=== PATIENT | male | born 1945 | race African-American/Black ===

== ENCOUNTER 2016-12-02 02:13 | Inpatient (IN) | payer OTHER ==
[2016-12-02] MEDS ORDERED: morphine CARPU-JECT 2 MG/1 ML DISP.SYRIN IVPUSH ONE ×2 (03:18→03:58)
--- NOTE | 2016-12-02 03:22 | PDOC ---
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 Patient states his abdominal pain starts at the right upper quadrant radiating down to the suprapubic region. He denies nausea, vomiting, or diarrhea. He states over the past 5 days he has had very little to no bowel movements and is still able to pass gas. The patient denies fever, chills, cough, SOB, chest pain, and palpitations. The patient denies dysuria, hematuria, urgency, and frequency. Allergies: NKDA Social History: No alcohol, tobacco, or drug use reported. Past Surgical History: s/p CABG 4x PCP: None reported <Annie Munguia - Last Filed: 12/02/16 04:19> <Eduardo Holm - Last Filed: 12/02/16 05:41> - General Chief Complaint: Constipation Stated Complaint: UPPER ABDOMINAL PAIN Time Seen by Provider: 12/02/16 03:13 Past History <Annie Munguia - Last Filed: 12/02/16 04:19> - Psycho/Social/Smoking Cessation Hx Suicidal Ideation: No Smoking History: Unknown if ever smoked Hx Alcohol Use: No Drug/Substance Use Hx: No <Eduardo Holm - Last Filed: 12/02/16 05:41> - Past Medical History Allergies/Adverse Reactions: Allergies Allergy/AdvReac Type Severity Reaction Status Date / Time No Known Allergies Allergy Verified 12/02/16 02:22 Home Medications: Ambulatory Orders Metoprolol Succinate [Toprol Xl -] 25 mg PO DAILY 12/02/16 Ramipril 5 mg PO DAILY 12/02/16 Review of Systems - Review of Systems Able to Perform ROS?: Yes Comments:: 12/02/16 03:35 +right upper quadrant pain radiating down to suprapubic region, constipation Absent: fever, chills, cough, SOB, chest pain, nausea, vomiting, diarrhea, dysuria, hematuria, urgency, and frequency. <Annie Munguia - Last Filed: 12/02/16 04:19> *Physical Exam - Vital Signs Last Vital Signs Temp Pulse Resp BP Pulse Ox 65 18 160/81 98 12/02/16 02:22 12/02/16 02:22 12/02/16 02:22 12/02/16 02:22 <AshokAnnie cooley - Last Filed: 12/02/16 04:19> - Vital Signs Last Vital Signs Temp Pulse Resp BP Pulse Ox 65 18 160/81 98 12/02/16 02:22 12/02/16 02:22 12/02/16 02:22 12/02/16 02:22 - Physical Exam Comments: 12/02/16 03:20 UNABLE TO LYE DOWN DUE TO PAIN General Appearance: Yes: Nourished, Appropriately Dressed, Apparent Distress HEENT: positive: Normal ENT Inspection Respiratory/Chest: positive: Lungs Clear, Normal Breath Sounds. negative: Chest Tender, Respiratory Distress Cardiovascular: positive: Regular Rhythm, Regular Rate Gastrointestinal/Abdominal: positive: Normal Bowel Sounds, Tender (RUQ, PERIUMBILICAL, AND SUPRAPUBIC AREA), Guarding. negative: Rebound Musculoskeletal: positive: Normal Inspection. negative: CVA Tenderness Extremity: positive: Normal Capillary Refill Integumentary: positive: Normal Color. negative: Jaundice, Rash Neurologic: positive: Fully Oriented, Alert, Normal Mood/Affect, Normal Response , Motor Strength 5/5 <Eduardo Holm - Last Filed: 12/02/16 05:41> ED Treatment Course - LABORATORY CBC & Chemistry Diagram: 12/02/16 03:00 12/02/16 03:00 - RADIOLOGY Radiograph Interpretation: 12/02/16 04:19 EXAM: CT abdomen and pelvis without contrast Reviewed by Imaging extension course counselor: FINDINGS: Lung bases are clear. The visualized cardiac chambers are normal size and configuration. Small to moderate amount of ascites is noted. There is contrast in the gallbladder. No free air or biliary duct dilatation. Normal unenhanced liver, pancreas, spleen, adrenal glands and kidneys. The stomach and abdominal small and large bowel are normal. There is no aortic aneurysm. There is no significant retroperitoneal lymphadenopathy. Small fat-containing umbilical hernia is noted. The pelvic small and large bowel are normal. There is no evidence of appendicitis, although the appendix only partially visualized. The urinary bladder and prostate gland are normal. There is no significant pelvic lymphadenopathy. IMPRESSION: Small to moderate amount of ascites could indicate a biliary leak.. No biliary duct dilation or pancreatic inflammation. Consider further evaluation with HIDA scan as clinically indicated. - Medications Given in the ED: ED Medications Discontinued Medications Generic Name Dose Route Start Last Admin Trade Name Asif PRN Reason Stop Dose Admin Morphine Sulfate 2 mg 12/02/16 03:18 12/02/16 03:25 Morphine Injection - IVPUSH 12/02/16 03:19 2 mg ONCE ONE Administration <Annie Munguia - Last Filed: 12/02/16 04:19> - LABORATORY CBC & Chemistry Diagram: 12/02/16 03:00 12/02/16 04:30 <Eduardo Holm - Last Filed: 12/02/16 05:41> Progress Note - Progress Note Progress Note: SUDDEN ONSET ABD PAIN DIFFICULT EXAM MORPHINE, IVF, CT NON CONTRAST (DIFF: GS/NL/CONSTIPATION) <Eduardo Holm - Last Filed: 12/02/16 05:41> Medical Decision Making - Medical Decision Making 12/02/16 03:54 Nurse approached and informed me that family member, at bedside, notified him that patient had a MRCP done at [facility] yesterday with unclear reasons given. <Annie Munguia - Last Filed: 12/02/16 04:19> *DC/Admit/Observation/Transfer - Attestations Scribe Attestion: 12/02/16 03:35 Documentation prepared by Annie Munguia, acting as medical affairs specialist for Eduardo Holm MD <Annie Munguia - Last Filed: 12/02/16 04:19> - Discharge Dispostion Admit: Yes <Eduardo Holm - Last Filed: 12/02/16 05:41> Diagnosis at time of Disposition: Postoperative bile leak - Discharge Dispostion Condition at time of disposition: Stable
[2016-12-02] MEDS ORDERED: morphine CARPU-JECT 2 MG/1 ML DISP.SYRIN ONE ×2 (03:23→03:54)
[2016-12-02 03:33] LABS: BASOPHIL 0.9 % (0-2.0); EOSINOPHIL 0.1 % (0-4.5); MCHC 34.3 g/dl (32.0-35.9); MEAN CELL VOLUME 99.1 fl (80-96); MEAN PLT VOLUME 8.4 fl (7.5-11.1); NEUTROPHILS 80.2 % (42.8-82.8); PLATELET COUNT 246 K/MM3 (134-434); RDW 14.8 % (11.9-15.9); WHITE BLOOD COUNT 6.5 K/mm3 (4.0-10.0)
[2016-12-02] MEDS ORDERED: SODIUM CHLORIDE 1,000 ML IV SCH ×2 (04:00→07:58)
[2016-12-02] MEDS ORDERED: morphine CARPU-JECT 4 MG/1 ML DISP.SYRIN ONE (04:40)
[2016-12-02] MEDS ORDERED: morphine CARPU-JECT 4 MG/1 ML DISP.SYRIN IVPUSH ONE (04:49)
[2016-12-02] MEDS ORDERED: PIPERACILLIN/TAZOB 3.375 GM/50 ML PRE-DOCKED IV ONE (04:49)
[2016-12-02] MEDS ORDERED: PIPERACILLIN/TAZOB 3.375 GM 50 ML IVPB ONE (04:54)
[2016-12-02 05:08] LABS: ALBUMIN 3.4 g/dl (3.4-5.0); ANION GAP 13 (8-16); BILIRUBIN,TOTAL 1.3 mg/dL (0.2-1.0); CALCIUM 9.4 mg/dL (8.5-10.1); CO2 25 mmol/L (21-32); CREATININE 0.8 mg/dL (0.7-1.3); GLUCOSE,RANDOM 149 mg/dL (74-106); SGOT/AST 149 U/L (15-37); SGPT/ALT 197 U/L (12-78); TOT PROT 6.5 g/dl (6.4-8.2)
[2016-12-02 05:21] LABS: ALK PHOS 968 U/L (45-117)
[2016-12-02 05:55] LABS: URINE APPEARANCE CLEAR; URINE BILIRUBIN NEGATIVE (NEGATIVE); URINE BLOOD NEGATIVE (NEGATIVE); URINE COLOR DKYELLOW; URINE GLUCOSE (UA) NEGATIVE (NEGATIVE); URINE KETONE TRACE (NEGATIVE); URINE LEUK ESTERASE NEGATIVE (NEGATIVE); URINE NITRITE NEGATIVE (NEGATIVE); URINE PROTEIN NEGATIVE (NEGATIVE); URINE UROBILINOGEN 2.0 E.U/dl E.U./dl (0.2-1.0)
--- NOTE | 2016-12-02 05:57 | HP ---
CHIEF COMPLAINT: Severe abdominal pain PCP: No PCP HISTORY OF PRESENT ILLNESS: Patient is a 71 year old male presented to the ED with the chief complaints of severe abdominal pain. A/c to the patient, he had an ERCP (unsure if he had an MRCP) done in [facility] yesterday. After he returned home, he has been having severe abdominal pain, located in the right upper quadrant, umbilical area and supra pubic area, 20/10 in intensity, pressure type, non radiating. Aggravated with deep inspiration and movement. Slight relief on bending forward. No nausea or vomiting. Patient never had the symptom before. Also noticed 15 lbs of weight loss over the past few weeks. Has a h/o constipation. Had a small bowel movement today after 6 days of no bowel movement. Denies chest pain, sob, cough, palpitation, headache, blurring of vision. Bladder habit normal. Appetite decreased. Sleep Normal. ER course was notable for: (1) Afebrile, no leukocytosis, RBS 149; T. Bilirubin 1.3; AST-149; ALT 197; ALP 968 (2) CT abdomen without IV contrast (3) Morphine 8mg; IV Zosyn Recent Travel: None PAST MEDICAL HISTORY: UT s/p CABG 4 (10years ago); Hypertension PAST SURGICAL HISTORY: As mentioned above Social History: Smoking: Quit 10 years ago, smoked for 20 years 1 pack/day Alcohol: Quit 3 years Drugs: Denies Family History: Allergies No Known Allergies Allergy (Verified 12/02/16 02:22) HOME MEDICATIONS: Home Medications Medication Instructions Recorded Metoprolol Succinate [Toprol Xl -] 25 mg PO DAILY 12/02/16 Ramipril 5 mg PO DAILY 12/02/16 REVIEW OF SYSTEMS CONSTITUTIONAL: Absent: fever, chills, diaphoresis, generalized weakness, malaise, loss of appetite, weight change HEENT: Absent: rhinorrhea, nasal congestion, throat pain, throat swelling, difficulty swallowing, mouth swelling, ear pain, eye pain, visual changes CARDIOVASCULAR: Absent: chest pain, syncope, palpitations, irregular heart rate, lightheadedness , peripheral edema RESPIRATORY: Absent: cough, shortness of breath, dyspnea with exertion, orthopnea, wheezing, stridor, hemoptysis GASTROINTESTINAL: Present: severe abdominal pain Absent: abdominal distension, nausea, vomiting, diarrhea, constipation, melena , hematochezia GENITOURINARY: Absent: dysuria, frequency, urgency, hesitancy, hematuria, flank pain, genital pain MUSCULOSKELETAL: Absent: myalgia, arthralgia, joint swelling, back pain, neck pain SKIN: Absent: rash, itching, pallor HEMATOLOGIC/IMMUNOLOGIC: Absent: easy bleeding, easy bruising, lymphadenopathy, frequent infections ENDOCRINE: Absent: unexplained weight gain, unexplained weight loss, heat intolerance, cold intolerance NEUROLOGIC: Absent: headache, focal weakness or paresthesias, dizziness, unsteady gait, seizure, mental status changes, bladder or bowel incontinence PSYCHIATRIC: Absent: anxiety, depression, suicidal or homicidal ideation, hallucinations. PHYSICAL EXAMINATION GENERAL: Elderly male, sitting up, Awake, alert, and fully oriented, in no acute distress. HEAD: Normal with no signs of trauma. EYES:EOM intact, Icteric +, no pallor EARS, NOSE, THROAT: Ears normal. Moist mucous membranes. NECK: Supple LUNGS: Breath sounds equal, clear to auscultation bilaterally. No wheezes, and no crackles. No accessory muscle use. HEART: Regular rate and rhythm, normal S1 and S2 without murmur, rub or gallop. ABDOMEN: Soft, tenderness over the right upper quadrant > umbilical and supra pubic area, not distended, normoactive bowel sounds, no guarding, no rebound, no masses. No hepatomegaly or splenomegaly. MUSCULOSKELETAL: Normal range of motion at all joints. No bony deformities or tenderness. No CVA tenderness. UPPER EXTREMITIES: 2+ pulses, warm, well-perfused. No cyanosis. No clubbing. No peripheral edema. LOWER EXTREMITIES: 2+ pulses, warm, well-perfused. No calf tenderness. No peripheral edema. NEUROLOGICAL: Cranial nerves II-XII intact. Normal speech. Normal gait. PSYCHIATRIC: Cooperative. Good eye contact. Appropriate mood and affect. SKIN: Warm, dry, normal turgor, no rashes or lesions noted, normal capillary refill. EXAM: CT abdomen and pelvis without contrast IMPRESSION: Small to moderate amount of ascites could indicate a biliary leak.. No biliary duct dilation or pancreatic inflammation. Consider further evaluation with HIDA scan as clinically indicated. ASSESSMENT/PLAN: Patient is a 71 year old male with significant past medical history of UT s/p CABG 4 (10years ago); Hypertension presented to the ED with the chief complaints of severe abdominal pain. # Severe abdominal pain- likely due to biliary colic s/p ERCP Patient presented with severe abdominal pain since yesterday after he had an ERCP (unsure if he had MRCP) yesterday at [facility] Unintentional weight loss. Afebrile, elevated liver enzymes CT abdomen showed small to moderate amount of ascites could indicate biliary leak Morphine 8mg; IV Zosyn Admitted in Med-Surg NPO Iv fluids For break through pain-Dilaudid 1mg; Fentanyl patch GI consult placed Possible HIDA scan Please kindly try to get documents from [facility]. # Hypertension Metoprolol 25 mg Daily Ramipril 5mg PO Daily # Constipation Colace # FEN IV fluids Electrolytes to be repeated NPO except for meds # Prophylaxis For DVT- On SCDs, just in case patient goes for any procedure no anticoagulants given For GI- Not indicated # Code Status: Full Code # Dispo: Admitted in Med-Surg. Duration of stay unknown. Illness, Investigation and Plan of care explained to the patient. He verbalized understanding. Case seen and discussed with Dr. Horton. Visit type - Emergency Visit Emergency Visit: Yes ED Registration Date: 12/02/16 Care time: The patient presented to the Emergency Department on the above date and was hospitalized for further evaluation of their emergent condition. - New Patient This patient is new to me today: Yes Date on this admission: 12/02/16 - Critical Care Critical Care patient: No
--- NOTE | 2016-12-02 05:59 | PN ---
Teaching Attending Note Name of Resident: Svitlana Aleman ATTENDING PHYSICIAN STATEMENT I saw and evaluated the patient. I reviewed the resident's note and discussed the case with the resident. I agree with the resident's findings and plan as documented. SUBJECTIVE: Patient is not a good historian and unaware of exact test or presumed diagnosis from his prior hospital visits. Patient brought into ED with c/o Abdominal pain in RUQ s/p ERCP at another facility ([facility]) yesterday. Patient has had 15 lb weight loss in 3 weeks and RUQ pain which worsened yesterday. Constipation for past couple days. Denies nausea, vomiting or diarrhea. OBJECTIVE: GEN: Alert and oriented times 3, no acute distress. HEENT: PERRLA, EOMI, juandice on under tongue CVS: RRR, S1, S2, Lungs: CTA Abd: BS+, pain on palpation RUQ and epigastric area, guarding no rebound Ext: nl rom, no edema CBCD WBC 6.5 K/mm3 (4.0-10.0) 12/02/16 03:00 RBC 4.30 M/mm3 (4.00-5.60) 12/02/16 03:00 Hgb 14.6 GM/dL (11.7-16.9) 12/02/16 03:00 Hct 42.6 % (35.4-49) 12/02/16 03:00 MCV 99.1 fl (80-96) H 12/02/16 03:00 MCHC 34.3 g/dl (32.0-35.9) 12/02/16 03:00 RDW 14.8 % (11.9-15.9) 12/02/16 03:00 Plt Count 246 K/MM3 (134-434) 12/02/16 03:00 MPV 8.4 fl (7.5-11.1) 12/02/16 03:00 CMP Sodium 141 mmol/L (136-145) 12/02/16 04:30 Potassium 4.2 mmol/L (3.5-5.1) 12/02/16 04:30 Chloride 103 mmol/L (98-107) 12/02/16 04:30 Carbon Dioxide 25 mmol/L (21-32) 12/02/16 04:30 Anion Gap 13 (8-16) 12/02/16 04:30 BUN 22 mg/dL (7-18) H 12/02/16 04:30 Creatinine 0.8 mg/dL (0.7-1.3) 12/02/16 04:30 Creat Clearance w eGFR > 60 (>60) 12/02/16 04:30 Calcium 9.4 mg/dL (8.5-10.1) 12/02/16 04:30 Total Bilirubin 1.3 mg/dL (0.2-1.0) H 12/02/16 04:30 AST 149 U/L (15-37) H 12/02/16 04:30 ALT 197 U/L (12-78) H 12/02/16 04:30 Alkaline Phosphatase 968 U/L (45-117) H 12/02/16 04:30 Total Protein 6.5 g/dl (6.4-8.2) 12/02/16 04:30 Albumin 3.4 g/dl (3.4-5.0) 12/02/16 04:30 ASSESSMENT AND PLAN: Acute cholecystitis vs Choledocholitiasis vs pancreatitis NPO IVF NS @100cc/h Fentanyl 25 mcg q72 dilaudid 1mg q6h prn Zofran prn for nausea GI consult in AM. Get medical records.
[2016-12-02] MEDS ORDERED: DOCUSATE SODIUM 100 MG CAPSULE (FP) PO PRN (06:53)
[2016-12-02] MEDS ORDERED: HYDROmorphone HCL CARPU-JECT 1 MG/1 ML DISP.SYRIN IVPB PRN (06:53)
[2016-12-02 06:59] LABS: AMYLASE 96 U/L (25-115)
[2016-12-02 07:00] LABS: TROPONIN I < 0.02 ng/ml (0.00-0.05)
[2016-12-02] MEDS ORDERED: FENTANYL PATCH WASTE MC PRN (07:57)
[2016-12-02] MEDS ORDERED: fentaNYL 25mcg/hr PATCH.TD72 TD SCH (08:00)
--- NOTE | 2016-12-02 09:17 | MSN ---
Admitting History and Physical - Admission Chief Complaint: abdominal pain History of Present Illness: 71 yo male with pmhx of HTN, HLD and HI s/p CABG x410 years ago presents with severe, non radiating, diffuse abdominal pain since last night. He has never had this problem before. Patient states he was getting ready for bed when the pain occurred. Patient says that yesterday he had an ERCP or MCRP at [facility]. He says the [id number] was being done because about a month ago he was found to have high liver enzymes. About 1-2 months ago he went to the [facility] for a week. He says hes has been constipated for the past month but that his stools have been non bloody and no diarrhea. Patient says he does not have much of an appetite and has lose 15lbs over the past few weeks. He complains of no changes or difficulty urinating. He has no chest pain , SOB, sick contacts, fever, chills, night sweats, jaundice or pruritis. Leaning forward makes the pain better and he only has pain when he moves. History Source: Patient Limitations to Obtaining History: No Limitations - Past Medical History Cardiovascular: Yes: HTN, Hyperlipdemia, HI - Past Surgical History Past Surgical History: Yes: CABG (x4 10 years ago) - Advance Directives Advance Directives: Yes: Health Care Proxy - Smoking History Smoking history: Former smoker Have you smoked in the past 12 months: No Aproximately how many cigarettes per day: 20 If you are a former smoker, when did you quit?: 1996 - Alcohol/Substance Use Hx Alcohol Use: Yes (socially 30 yrs ago) Home Medications - Allergies Allergies/Adverse Reactions: Allergies Allergy/AdvReac Type Severity Reaction Status Date / Time No Known Allergies Allergy Verified 12/02/16 02:22 - Home Medications Home Medications: Ambulatory Orders Metoprolol Succinate [Toprol Xl -] 25 mg PO DAILY 12/02/16 Ramipril 5 mg PO DAILY 12/02/16 Review of Systems - Review of Systems Constitutional: reports: Loss of Appetite, Unintentional Wgt. Loss Cardiovascular: reports: No Symptoms Respiratory: reports: No Symptoms Gastrointestinal: reports: Abdominal Pain, Constipation Genitourinary: reports: No Symptoms Physical Examination Vital Signs: Vital Signs Temperature 97.6 F 12/02/16 06:25 Pulse Rate 68 12/02/16 06:25 Respiratory Rate 18 12/02/16 06:25 Blood Pressure 144/85 12/02/16 06:25 O2 Sat by Pulse Oximetry (%) 100 12/02/16 04:47 Constitutional: Yes: Moderate Distress, Thin Eyes: Yes: Conjunctiva Clear Cardiovascular: Yes: WNL, Regular Rate and Rhythm, S1, S2 Respiratory: Yes: WNL, CTA Bilaterally, Tachypnea Gastrointestinal: Yes: Normal Bowel Sounds, Tenderness, Tenderness, Epigastrium , Other (rigid, guarding) Neurological: Yes: WNL, Alert, Oriented Psychiatric: Yes: WNL, Alert, Oriented Imaging - Results X-ray: Report Reviewed (increased lung markings, no acute pathology) Cat Scan: Report Reviewed (ascites, free fluid in lower pelvis, gallstones in gall bladder), Image Reviewed Assessment/Plan 71 yo male with pmhx of HTN, HLD and HI s/p CABG x410 years ago presents with severe, non radiating, diffuse abdominal pain since last night. Abdominal pain possible due to biliary leak s/p ERCP -patient had ERCP preformed at [facility] yesterday for previous elevation fo liver enzymes -elevated LFT, total bilirubin and ALP -CT showed ascites, free fluid in lo0wer pelvis and gallstones in gallbladder -CXR showed increased interstital markings -morphine and zosyn -NPO -IV fluids -dilaudid for break through pain and fentanyl patch -GI consult -HIDA scan for outpatient -trying to get documents from [facility] Hypertension -Metoprolol 25 mg Daily -Ramipril 5mg PO Daily Constipation -Colace FEN -IV fluids -Electrolytes to be repeated -NPO except for meds Prophylaxis -For DVT- On SCDs, just in case patient goes for any procedure no anticoagulants given -For GI- Not indicated Code Status: Full Code
[2016-12-02] MEDS ORDERED: RAMIPRIL 5 MG CAPSULE (FP) PO SCH (10:00)
[2016-12-02] MEDS ORDERED: METOPROLOL SUCCINATE 25 MG TAB.SR.24H (FP) PO SCH (10:00)
[2016-12-02] MEDS ORDERED: LEVOFLOXACIN 500 MG IVPB 100 ML IVPB SCH (12:15)
--- NOTE | 2016-12-02 12:18 | CON.GI ---
Consult Consult Specialty:: Gastroenterology Referred by:: Dr. Acevedo Reason for Consultation:: Abdominal pain - History of Present Illness Chief Complaint: Severe generalized abdominal pain History of Present Illness: 71M underwent ERCP with Spyglass cholangioscopy and biopsy of a right hepatic duct stricture yesterday with Dr Azevedo at [facility]. Last night he developed severe generalized abdominal pain. CT scan reveals a large amount of peritoneal fluid in the pelvis and slight amount in the upper abdomen. Contrast is seen within the gallbladder. I discussed the case with Dr Azevedo who informs me that he patient is being evaluated for possible cholangiocarcinoma ( multicentric) vs primary sclerosing cholangitis. Raffaele denies any h/o chronic liver disease. NO h/o ETOH abuse or IVDA. He has lost about 15 lbs in the past few months. - History Source History Provided By: Patient Limitations to Obtaining History: Poor Historian - Past Medical History Cardio/Vascular: Yes: CAD (s/p CABG 2003), HTN, Hyperlipdemia, [place] (2003) Gastrointestinal: Yes: Other (colon polyps removed within past 2 years) Hepatobiliary: Yes: Other (intrahepatic biliary strictures - cholangiocarcinoma vs primary sclerosing cholangitis) - Past Surgical History Past Surgical History: Yes: CABG (x4 10 years ago), Cataract Removal, Hernia Repair (bilateral inguinal herniorraphies) - Alcohol/Substance Use Hx Alcohol Use: Yes (socially 30 yrs ago) - Smoking History Smoking history: Former smoker Have you smoked in the past 12 months: No Aproximately how many cigarettes per day: 20 If you are a former smoker, when did you quit?: 1996 - Social History Usual Living Arrangement: With Spouse ADL: Independent Occupation: retired busdriver Place of : Other ([employer]) Came to [place] (year[place] age 27 History of Recent Travel: Yes (to [facility]) Home Medications - Allergies Allergies/Adverse Reactions: Allergies Allergy/AdvReac Type Severity Reaction Status Date / Time No Known Allergies Allergy Verified 12/02/16 02:22 - Home Medications Home Medications: Ambulatory Orders Metoprolol Succinate [Toprol Xl -] 25 mg PO DAILY 12/02/16 Ramipril 5 mg PO DAILY 12/02/16 Family Disease History - Family Disease History Family Disease History: CA: Son ( of lung cancer), Other: Father (lived to 93), Mother (lived to 92) Review of Systems - Review of Systems Constitutional: reports: Chills, Loss of Appetite, Unintentional Wgt. Loss Eyes: reports: No Symptoms HENT: reports: No Symptoms Neck: reports: No Symptoms Cardiovascular: reports: No Symptoms Respiratory: reports: No Symptoms Gastrointestinal: reports: Abdominal Pain, Constipation Neurological: reports: No Symptoms Physical Exam-GI Vital Signs: Vital Signs Temperature 97.9 F 12/02/16 09:00 Pulse Rate 65 12/02/16 09:00 Respiratory Rate 18 12/02/16 09:00 Blood Pressure 102/72 12/02/16 09:00 O2 Sat by Pulse Oximetry (%) 97 12/02/16 09:00 CBC,CMP WBC 6.5 K/mm3 (4.0-10.0) 12/02/16 03:00 RBC 4.30 M/mm3 (4.00-5.60) 12/02/16 03:00 Hgb 14.6 GM/dL (11.7-16.9) 12/02/16 03:00 Hct 42.6 % (35.4-49) 12/02/16 03:00 MCV 99.1 fl (80-96) H 12/02/16 03:00 MCHC 34.3 g/dl (32.0-35.9) 12/02/16 03:00 RDW 14.8 % (11.9-15.9) 12/02/16 03:00 Plt Count 246 K/MM3 (134-434) 12/02/16 03:00 MPV 8.4 fl (7.5-11.1) 12/02/16 03:00 Neutrophils % 80.2 % (42.8-82.8) 12/02/16 03:00 Lymphocytes % 11.8 % (8-40) 12/02/16 03:00 Monocytes % 7.0 % (3.8-10.2) 12/02/16 03:00 Eosinophils % 0.1 % (0-4.5) 12/02/16 03:00 Basophils % 0.9 % (0-2.0) 12/02/16 03:00 Sodium 141 mmol/L (136-145) 12/02/16 04:30 Potassium 4.2 mmol/L (3.5-5.1) 12/02/16 04:30 Chloride 103 mmol/L (98-107) 12/02/16 04:30 Carbon Dioxide 25 mmol/L (21-32) 12/02/16 04:30 Anion Gap 13 (8-16) 12/02/16 04:30 BUN 22 mg/dL (7-18) H 12/02/16 04:30 Creatinine 0.8 mg/dL (0.7-1.3) 12/02/16 04:30 Creat Clearance w eGFR > 60 (>60) 12/02/16 04:30 Random Glucose 149 mg/dL (74-106) H 12/02/16 04:30 Calcium 9.4 mg/dL (8.5-10.1) 12/02/16 04:30 Total Bilirubin 1.3 mg/dL (0.2-1.0) H 12/02/16 04:30 AST 149 U/L (15-37) H 12/02/16 04:30 ALT 197 U/L (12-78) H 12/02/16 04:30 Alkaline Phosphatase 968 U/L (45-117) H 12/02/16 04:30 Troponin I < 0.02 ng/ml (0.00-0.05) 12/02/16 04:30 Total Protein 6.5 g/dl (6.4-8.2) 12/02/16 04:30 Albumin 3.4 g/dl (3.4-5.0) 12/02/16 04:30 Total Amylase 96 U/L (25-115) 12/02/16 04:30 Lipase 359 U/L (73-393) 12/02/16 04:30 Current Medications Generic Name Dose Route Start Last Admin Trade Name Freq PRN Reason Stop Dose Admin Docusate Sodium 100 mg 12/02/16 06:53 Colace - PO BID PRN CONSTIPATION Fentanyl 1 patch 12/02/16 08:00 12/02/16 09:05 Duragesic 25mcg Patch - TD 12/09/16 07:57 1 patch Q72H HOLLIE Administration Hydromorphone HCl 1 mg 12/02/16 06:53 12/02/16 08:55 Dilaudid Injection - IVPB 1 mg Q6H PRN Administration PAIN Sodium Chloride 1,000 mls @ 100 mls/hr 12/02/16 07:58 12/02/16 08:00 Normal Saline - IV 100 mls/hr ASDIR HOLLIE Administration Levofloxacin 100 mls @ 100 mls/hr 12/02/16 12:15 12/02/16 12:16 Levaquin 500 Mg Premixed Ivpb - IVPB 100 mls/hr DAILY HOLLIE Administration Metronidazole 100 mls @ 100 mls/hr 12/02/16 12:00 Flagyl 500mg Premixed Ivpb - IVPB Q8H-IV HOLLIE Metoprolol Succinate 25 mg 12/02/16 10:00 12/02/16 10:04 Toprol Xl - PO Not Given DAILY HOLLIE Miscellaneous 1 each 12/02/16 07:57 Duragesic Patch Waste MC PRN PRN PAIN Ramipril 5 mg 12/02/16 10:00 12/02/16 10:04 Altace - PO Not Given DAILY HOLLIE Constitutional: Yes: Anxious, Moderate Distress Eyes: Yes: Conjunctiva Clear HENT: Yes: Normocephalic Neck: Yes: Supple Cardiovascular: Yes: Regular Rate and Rhythm, Other (healed median sternotomy incision) Respiratory: Yes: CTA Bilaterally Gastrointestinal Inspection: Yes: WNL ...Auscultate: Yes: Hypoactive Bowel Sounds ...Palpate: Yes: Soft, Tenderness (RUQ but no rebound) ...Rectal Exam: Yes: Deferred Imaging - Results Cat Scan: Image Reviewed (pelvic and upper abdominal ascites, contrast in GB with stone, no pneumoperitoneum) Problem List - Problems (1) Stricture of bile duct Code(s): K83.1 - OBSTRUCTION OF BILE DUCT (2) Weight loss, abnormal Code(s): R63.4 - ABNORMAL WEIGHT LOSS (3) S/P CABG (coronary artery bypass graft) Code(s): Z95.1 - PRESENCE OF AORTOCORONARY BYPASS GRAFT (4) Myocardial infarction Code(s): I21.3 - ST ELEVATION (STEMI) MYOCARDIAL INFARCTION OF UNSP SITE (5) Hypertension Code(s): I10 - ESSENTIAL (PRIMARY) HYPERTENSION (6) Hyperlipemia Code(s): E78.5 - HYPERLIPIDEMIA, UNSPECIFIED (7) Colon polyps Code(s): K63.5 - POLYP OF COLON Assessment/Plan The picture is most consistent with an ERCP related bile leak. I have ordered blood cultures and antibiotics and a Hida scan. Will cancel Hida scan as Dr Azevedo has agreed to have the patient transferred to [facility] ( Dr Lillie Caba's service) for ERCP intervention to seal the bile leak. The patient's weight loss and lack of episodes of cholangitis make cholangiocarcinoma more likely than PSC. Raffaele is accepting of this transfer. I had consented him for emergent ERCP here but he will be better served at [facility] where the ERCP can be done with Spyglass guidance and Dr Rashid's experience and knowledge of Raffaele's biliary anatomy. Transfer center contacted and transfer forms completed. Anticipate imminent transfer. Discussed with Dr Acevedo.
[2016-12-02 12:35] LABS: INR 1.18 (0.82-1.09)
[2016-12-02] MEDS: METRONIDAZOLE 500 MG PREMIXED 100 ML IVPB SCH ×2 (13:10→17:49)
--- NOTE | 2016-12-02 13:29 | DS ---
Physical Exam: SUBJECTIVE: Patient seen and examined admits to RUQ pain that radiated to suprapubic region, sharp, 10/10. Afebrile. No other associated symptoms. Denies chest pain, sob, nausea, vomiting, diarrhea, OBJECTIVE: Vital Signs Period Temp Pulse Resp BP Sys/Aguirre Pulse Ox Last 24 Hr 97.6 F-97.9 F 65-68 18-18 102-144/72-85 97 PHYSICAL EXAM GENERAL: The patient is thin, awake, alert, and fully oriented, in pain HEAD: Normal with no signs of trauma. LUNGS: Breath sounds equal, clear to auscultation bilaterally, no wheezes, no crackles, no accessory muscle use. HEART: Regular rate and rhythm, S1, S2 without murmur, rub or gallop. ABDOMEN: Soft, very tender to light touch RUQ, nondistended, normoactive bowel sounds, no guarding, no rebound, no hepatosplenomegaly, no masses. EXTREMITIES: 2+ pulses, warm, well-perfused, no edema. NEUROLOGICAL: Cranial nerves II through XII grossly intact. Normal speech, gait not observed. PSYCH: Normal mood, normal affect. SKIN: Warm, dry, normal turgor, no rashes or lesions noted. LABS Laboratory Results - last 24 hr 12/02/16 12/02/16 05:48 12:05 INR 1.18 H Urine Color Dkyellow Urine Appearance Clear Urine pH 5.0 Ur Specific [place] 1.032 Urine Protein Negative Urine Glucose (UA) Negative Urine Ketones Trace H Urine Blood Negative Urine Nitrite Negative Urine Bilirubin Negative Urine Urobilinogen 2.0 e.u/dl Ur Leukocyte Esterase Negative HOSPITAL COURSE: Date of Admission:12/02/16 Date of Discharge: 12/02/16 Patient is a 71 year old male presented to the ED with the chief complaints of severe abdominal pain x 1 day. Patient admits that he was been going to [facility] for evaluation of his condition of abdominal pain, elevated liver function studies with a recent ERCP. After this procedure he started with excruciating RUQ pain. Patient came to [facility] because it was close to his house. Emergency room course was notable for lab abnormalities including, bilirubin 1.3; AST-149; ALT 197; ALP 968. Patient was afebrile with no leukocytosis. CT abdomen with and with out IV contrast showing small to moderate ascities, which is most likely related to bile leak s/p ERCP. Charge Lpn, Dr. Alvarado, is on the case here, who called [facility] and spoke with the paint tinter there, Dr. Azevedo, they agreed to have the patient transferred to [facility] (Dr. Lillie Caba's service ) for ERCP intervention to seal bile leak. It is in the patient's best interest to be treated there due to previous work up and familiarity with patients' caseand anatomy. Working diagnosis include cholangiocarcinoma vs primary sclerosis cholangitis. Patient started on prophylactic antibiotic IV Metronidazole and Levaquin. Pain controlled. Minutes to complete discharge: 35 Discharge Summary Reason For Visit: BILIARY LEAK Current Active Problems Bile leak, postoperative (Acute) Colon polyps (Acute) Hyperlipemia (Acute) Hypertension (Acute) Myocardial infarction (Acute) S/P CABG (coronary artery bypass graft) (Acute) Stricture of bile duct (Acute) Weight loss, abnormal (Acute) Condition: Stable - Instructions Diet, Activity, Other Instructions: Mr Hanson, we are transferring you back to [facility] to further evaluate you condition. It is in your best interest to be treated there due to the workup that has already been performed and the doctors that are familiar with you and your case. Disposition: TRANSFER ACUTE CARE/OTHER HOSP - Home Medications Comprehensive Discharge Medication List: Ambulatory Orders Metoprolol Succinate [Toprol XL -] 25 mg PO DAILY 12/02/16 Ramipril 5 mg PO DAILY 12/02/16 This patient is new to me today: Yes Date on this admission: 12/02/16 Emergency Visit: Yes ED Registration Date: 12/02/16 Care time: The patient presented to the Emergency Department on the above date and was hospitalized for further evaluation of their emergent condition. Critical Care patient: No - Discharge Referral Referred to [facility] No
--- NOTE | 2016-12-02 18:22 | PN ---
Teaching Attending Note Name of Resident: Kasey Gaming ATTENDING PHYSICIAN STATEMENT I saw and evaluated the patient. I reviewed the resident's note and discussed the case with the resident. I agree with the resident's findings and plan as documented. SUBJECTIVE: seen and evaluated at the bedside OBJECTIVE: resting comfortably in no distress ASSESSMENT AND PLAN: 71 year old man with NM s/p CABG 4 (10years ago); Hypertension admitted for possible perforation after ERCP done at [facility] yesterday -discussed case with GI attending who spoke with physician who performed ERCP yesterday at [facility] and concern is for possible perforation or other possible complication from procedure -arrangements have been made for transfer to [facility] -started on levofloxacin/flagly -for transfer when bed is available
[2016-12-02 18:38] VITALS: BP 126/75; PULSE 71; TEMP 98.5
--- NOTE | 2016-12-08 17:14 | EKG ---
Test Reason : Blood Pressure : / mmHG Vent. Rate : 058 BPM Atrial Rate : 058 BPM P-R Int : 180 ms QRS Dur : 096 ms QT Int : 414 ms P-R-T Axes : 068 -86 071 degrees QTc Int : 406 ms POOR DATA QUALITY, INTERPRETATION MAY BE ADVERSELY AFFECTED SINUS BRADYCARDIA WITH SINUS ARRHYTHMIA POSSIBLE LEFT ATRIAL ENLARGEMENT INCOMPLETE RIGHT BUNDLE BRANCH BLOCK LEFT ANTERIOR FASCICULAR BLOCK ANTEROSEPTAL INFARCT (CITED ON OR BEFORE 11-MAR-1998) ABNORMAL ECG WHEN COMPARED WITH ECG OF 11-MAR-1998 17:26, INCOMPLETE RIGHT BUNDLE BRANCH BLOCK IS NOW PRESENT QUESTIONABLE CHANGE IN INITIAL FORCES OF SEPTAL LEADS Confirmed by JENNIFER VILLASENOR MD ([id number]) on 12/08/2016 5:13:50 PM Referred By: Confirmed By:JENNIFER VILLASENOR MD
== END 2016-12-02 18:55 | disposition short-term general hospital (02) | DRG 394 ==
LOC: JER 02:13 → UNDOADMIN 05:38 → JERBED 05:38 → J4S 07:31
PROVIDERS: ADMIT Internal Medicine; ATTEND Internal Medicine
DX: K91.89 Other postprocedural complications and disorders of digestive system (principal); R18.8 Other ascites; Y83.9 Surgical procedure, unspecified as the cause of abnormal reaction of the patient, or of later complication, without mention of misadventure at the time of the procedure; E78.5 Hyperlipidemia, unspecified; I25.10 Atherosclerotic heart disease of native coronary artery without angina pectoris; Z95.1 Presence of aortocoronary bypass graft; I10 Essential (primary) hypertension; R63.4 Abnormal weight loss; Z68.20 Body mass index [BMI] 20.0-20.9, adult; I25.2 Old myocardial infarction; Z87.891 Personal history of nicotine dependence; K59.00 Constipation, unspecified
CPT/HCPCS: 36415; 71010-TC; 74176-TC; 80053; 81003; 82150; 83690; 84484; 85025; 85610; 87040; 93005; 93010; 99283-25

== ENCOUNTER 2017-11-08 10:02 | Day surgery (SDC) | payer OTHER ==
[2017-11-07 13:00] VITALS: BMI 17.3
[2017-11-08 10:36] VITALS: TEMP 97.8
[2017-11-08 10:49] LABS: BASO % 0.9 % (0-2.0); EOS % 0.4 % (0-4.5); HEMATOCRIT 42.6 % (35.4-49); HEMOGLOBIN 13.7 GM/dL (11.7-16.9); LYMPH % 22.1 % (8-40); MCH 31.4 pg (25.7-33.7); MCHC 32.2 g/dl (32.0-35.9); MEAN CELL VOLUME 97.4 fl (80-96); MEAN PLT VOLUME 7.6 fl (7.5-11.1); MONO % 9.3 % (3.8-10.2); NEUT % 67.3 % (42.8-82.8); PLATELET COUNT 184 K/MM3 (134-434); RBC 4.38 M/mm3 (4.00-5.60); RDW 15.5 % (11.9-15.9)
[2017-11-08 10:58] LABS: INR 1.1 (0.82-1.09); PROTHROMBIN TIME (PATIENT) 12.4 SEC (9.98-11.88)
[2017-11-08 18:02] VITALS: BP 98/60; PULSE 58
== END 2017-11-08 17:40 ==
LOC: JRADIR 10:02
PROVIDERS: ATTEND Physician Assistant
PROC: 0W9G3ZX Drainage of Peritoneal Cavity, Percutaneous Approach, Diagnostic (ICD-10-PCS; principal; 2017-11-08)
PROC: BW40ZZZ Ultrasonography of Abdomen (ICD-10-PCS; 2017-11-08)
DX: R18.8 Other ascites (principal)
CPT/HCPCS: 36415; 49083; 76942-TC; 85025; 85610

== ENCOUNTER 2017-12-08 10:05 | Day surgery (SDC) | payer OTHER ==
[2017-12-06 17:32] VITALS: BMI 17.3
[2017-12-08 10:51] LABS: BASO % 0.9 % (0-2.0); EOS % 0.3 % (0-4.5); HEMATOCRIT 41.4 % (35.4-49); HEMOGLOBIN 13.5 GM/dL (11.7-16.9); LYMPH % 19.4 % (8-40); MCH 31.8 pg (25.7-33.7); MCHC 32.6 g/dl (32.0-35.9); MEAN CELL VOLUME 97.6 fl (80-96); MEAN PLT VOLUME 7.5 fl (7.5-11.1); MONO % 10.1 % (3.8-10.2); NEUT % 69.3 % (42.8-82.8); PLATELET COUNT 176 K/MM3 (134-434); RBC 4.24 M/mm3 (4.00-5.60); RDW 16.3 % (11.9-15.9); WHITE BLOOD COUNT 3.9 K/mm3 (4.0-10.0)
[2017-12-08 11:14] LABS: INR 1.16 (0.82-1.09); PROTHROMBIN TIME (PATIENT) 13.1 SEC (9.98-11.88)
[2017-12-08 13:15] VITALS: TEMP 98
[2017-12-08 14:22] VITALS: BP 105/61; PULSE 72
== END 2017-12-08 14:15 ==
LOC: JRADIR 10:05
PROVIDERS: ATTEND Physician Assistant
PROC: 0W9G3ZZ Drainage of Peritoneal Cavity, Percutaneous Approach (ICD-10-PCS; principal; 2017-12-08)
PROC: BW40ZZZ Ultrasonography of Abdomen (ICD-10-PCS; 2017-12-08)
DX: R18.8 Other ascites (principal)
CPT/HCPCS: 36415; 49083; 76942-TC; 85025; 85610

== ENCOUNTER 2017-12-26 10:00 | Inpatient (IN) | payer OTHER ==
[2017-12-25 14:26] VITALS: BMI 17.3
[2017-12-26] MEDS: ALBUMIN HUMAN 25% 12.5 GM/50 ML VIAL IVPB SCH ×4 (14:45→16:20)
[2017-12-26] MEDS ORDERED: DOCUSATE SODIUM 100 MG CAPSULE (FP) PO PRN (15:24)
[2017-12-26] MEDS ORDERED: ACETAMINOPHEN 325 MG TABLET (FP) PO PRN (15:24)
[2017-12-26] MEDS ORDERED: LACTULOSE 20 GM/30 ML UDC (FOR ORAL USE ONLY) PO PRN ×2 (15:24→15:25)
--- NOTE | 2017-12-26 17:11 | HP ---
Admitting History and Physical - Primary Care Physician PCP: Little Nguyen - Admission Chief Complaint: PLEURIX PLACEMENT History of Present Illness: S/P CABG WITH LIVER FAILURE WITH PLEURIX PLACEMENT TODAY WITH INTERVENTIONAL RADIOLOGY. PATIENT HAD 9 LITERS OF ABDOMINAL ASCITES FLUID REMOVED. DEVELOPED WEAKNESS AND HYPOTENSION KEEP PATIENT FOR SAELITE ADMISSION 23 HOURS History Source: Medical Record Limitations to Obtaining History: Poor Historian - Past Medical History Cardiovascular: Yes: CAD (s/p CABG 2003), HTN, Hyperlipdemia, [place] (2003) Gastrointestinal: Yes: Other (colon polyps removed within past 2 years) Hepatobiliary: Yes: Other (intrahepatic biliary strictures - cholangiocarcinoma vs primary sclerosing cholangitis) - Past Surgical History Past Surgical History: Yes: CABG (x4 10 years ago), Cataract Removal, Hernia Repair (bilateral inguinal herniorraphies) - Smoking History Smoking history: Former smoker Have you smoked in the past 12 months: No Aproximately how many cigarettes per day: 20 If you are a former smoker, when did you quit?: 1996 - Alcohol/Substance Use Hx Alcohol Use: Yes (socially 30 yrs ago) - Social History ADL: Independent Occupation: retired busdriver History of Recent Travel: Yes (to [facility]) Home Medications - Allergies Allergies/Adverse Reactions: Allergies Allergy/AdvReac Type Severity Reaction Status Date / Time No Known Allergies Allergy Verified 12/08/17 11:44 - Home Medications Home Medications: Ambulatory Orders Metoprolol Succinate [Toprol XL -] 25 mg PO DAILY 12/02/16 Apixaban [Eliquis] 2.5 mg PO BID 11/07/17 Docusate Sodium [Colace -] 300 mg PO HS 11/07/17 Fentanyl 1 each TD UTDICT 11/07/17 Fluconazole 200 mg PO ASDIR 11/07/17 Lactulose (Oral Use) [Cephulac -] 20 gm PO DAILY 11/07/17 Ranitidine HCl [Zantac] 150 mg PO DAILY 11/07/17 Ursodiol [Actigal] 300 mg PO Q12H 11/07/17 Family Disease History - Family Disease History Family Disease History: CA: Son ( of lung cancer), Other: Father (lived to 93), Mother (lived to 92) Review of Systems - Review of Systems Constitutional: reports: Loss of Appetite Eyes: reports: No Symptoms HENT: reports: No Symptoms Neck: reports: No Symptoms Cardiovascular: reports: No Symptoms Respiratory: reports: No Symptoms Gastrointestinal: reports: Other Genitourinary: reports: No Symptoms Musculoskeletal: reports: Muscle Weakness Integumentary: reports: No Symptoms Neurological: reports: Pre-Existing Deficit Endocrine: reports: No Symptoms Hematology/Lymphatic: reports: No Symptoms Psychiatric: reports: Depression Physical Examination Vital Signs: Vital Signs Temperature 97.2 F L 12/26/17 10:35 Pulse Rate 72 12/26/17 13:36 Respiratory Rate 16 12/26/17 13:36 Blood Pressure 105/71 12/26/17 13:36 O2 Sat by Pulse Oximetry (%) 100 12/26/17 13:36 Constitutional: Yes: Mild Distress Eyes: Yes: WNL HENT: Yes: WNL Neck: Yes: WNL Cardiovascular: Yes: WNL Respiratory: Yes: WNL Gastrointestinal: Yes: Other Renal/: Yes: WNL Musculoskeletal: Yes: Muscle Weakness Extremities: Yes: WNL Edema: Yes Edema: LLE: 1+, RLE: 1+ Peripheral Pulses WNL: Yes Integumentary: Yes: WNL Wound/Incision: Yes: Dressing Dry and Intact (RIGHT ABD PLEURIX PLACED) Neurological: Yes: Weakness ...Motor Strength: LLE, RLE Psychiatric: Yes: Other Problem List - Problems (1) Ascites Code(s): R18.8 - OTHER ASCITES (2) Bile leak, postoperative Code(s): K91.89 - OTH POSTPROCEDURAL COMPLICATIONS AND DISORDERS OF DGSTV SYS; K83.8 - OTHER SPECIFIED DISEASES OF BILIARY TRACT (3) Hyperlipemia Code(s): E78.5 - HYPERLIPIDEMIA, UNSPECIFIED (4) Hypertension Code(s): I10 - ESSENTIAL (PRIMARY) HYPERTENSION (5) S/P CABG (coronary artery bypass graft) Code(s): Z95.1 - PRESENCE OF AORTOCORONARY BYPASS GRAFT Assessment/Plan PLEURIX PLACED WILL MONITOR FOR 23HOUR STAY 9LITERS REMOVED GI FOLLOW UP PRIOR TO DISCHARGE IVF GENTLE HYDRATION CHECK LABS DC PLANNING IN MORNING
[2017-12-26] MEDS: SODIUM CHLORIDE 1,000 ML IV SCH (20:20)
--- NOTE | 2017-12-26 20:39 | CON.GI ---
Consult Consult Specialty:: GI Reason for Consultation:: ?malignant ascites - History of Present Illness History of Present Illness: A 72M from SNF/Hospice x 2 moths. Admitted for intractable ascites secondary to what appears to be cholangiocarcinoma, per prior admission records. The pt is status post pleurix catheter, large volume paracentesis followed by albumin infusion today. Feels weak, but not in distress, Awake and alert. Abdomen flat and soft. Mild tenderness at port site - History Source History Provided By: Patient, Medical Record - Past Medical History Cardio/Vascular: Yes: CAD (s/p CABG 2003), HTN, Hyperlipdemia, [place] (2003) Gastrointestinal: Yes: Other (colon polyps removed within past 2 years) Hepatobiliary: Yes: Other (intrahepatic biliary strictures - cholangiocarcinoma vs primary sclerosing cholangitis) - Past Surgical History Past Surgical History: Yes: CABG (x4 10 years ago), Cataract Removal, Hernia Repair (bilateral inguinal herniorraphies) - Alcohol/Substance Use Hx Alcohol Use: Yes (socially 30 yrs ago) - Smoking History Smoking history: Former smoker Have you smoked in the past 12 months: No Aproximately how many cigarettes per day: 20 If you are a former smoker, when did you quit?: 1996 - Social History Usual Living Arrangement: With Spouse ADL: Independent Occupation: retired busdriver History of Recent Travel: Yes (to [facility]) Home Medications - Allergies Allergies/Adverse Reactions: Allergies Allergy/AdvReac Type Severity Reaction Status Date / Time No Known Allergies Allergy Verified 12/08/17 11:44 - Home Medications Home Medications: Ambulatory Orders Metoprolol Succinate [Toprol XL -] 25 mg PO DAILY 12/02/16 Apixaban [Eliquis] 2.5 mg PO BID 11/07/17 Docusate Sodium [Colace -] 300 mg PO HS 11/07/17 Fentanyl 1 each TD UTDICT 11/07/17 Fluconazole 200 mg PO ASDIR 11/07/17 Lactulose (Oral Use) [Cephulac -] 20 gm PO DAILY 11/07/17 Ranitidine HCl [Zantac] 150 mg PO DAILY 11/07/17 Ursodiol [Actigal] 300 mg PO Q12H 11/07/17 Family Disease History - Family Disease History Family Disease History: CA: Son ( of lung cancer), Other: Father (lived to 93), Mother (lived to 92) Review of Systems Unable to obtain ROS, reason: poor historian Findings/Remarks: as per HPI, H&P Physical Exam-GI Vital Signs: Vital Signs Temperature 97.2 F L 12/26/17 10:35 Pulse Rate 62 12/26/17 19:27 Respiratory Rate 16 12/26/17 19:27 Blood Pressure 92/55 12/26/17 19:27 O2 Sat by Pulse Oximetry (%) 100 12/26/17 13:36 Constitutional: Yes: Calm, Cachectic, Pallor, Thin Eyes: No: Sclera Icterus HENT: No: Drooling, Thrush Neck: Yes: Supple, Trachea Midline Cardiovascular: No: Bradycardia, Tachycardia Gastrointestinal Inspection: No: Distention ...Palpate: Yes: Soft. No: Firm/Rigid, Guarding Neurological: Yes: Alert Problem List - Problems (1) Cholangiocarcinoma Code(s): C22.1 - INTRAHEPATIC BILE DUCT CARCINOMA Assessment/Plan Given the presentation malignancy vs end-stage liver disease is very likely. Monitor renal function and urine out put in the next 12 hrs. Very genital hydration. Keep SBP ~ 100 Agree with lactulose titrated to 4 bms per day. If starts to exhibit signs of encephalopathy while on lactulose, add rifaximine 550 bid. Close monitoring for signs of peritonial fluid infection now that there is catheter in place. Prognosis grave.
[2017-12-26] MEDS: RANITIDINE HCL 150 MG TABLET (FP) PO SCH (21:28)
[2017-12-26] MEDS: URSODIOL 300 MG CAPSULE PO SCH (21:29)
[2017-12-27] MEDS: SODIUM CHLORIDE 1,000 ML IV SCH ×2 (07:13→17:16)
[2017-12-27 07:25] LABS: ANION GAP 4 (8-16); BLOOD UREA NITROGEN 47 mg/dL (7-18); CALCIUM 8.5 mg/dL (8.5-10.1); CHLORIDE 110 mmol/L (98-107); CO2 29 mmol/L (21-32); CREATININE 2.5 mg/dL (0.7-1.3); GLUCOSE,RANDOM 82 mg/dL (74-106); MAGNESIUM 2.4 mg/dL (1.8-2.4); POTASSIUM 5.2 mmol/L (3.5-5.1); SODIUM 143 mmol/L (136-145)
[2017-12-27 07:26] LABS: INR 1.24 (0.82-1.09)
[2017-12-27 07:30] LABS: HEMATOCRIT 37.6 % (35.4-49); HEMOGLOBIN 12.5 GM/dL (11.7-16.9); MCH 33.4 pg (25.7-33.7); MCHC 33.3 g/dl (32.0-35.9); MEAN CELL VOLUME 100.3 fl (80-96); MEAN PLT VOLUME 7.7 fl (7.5-11.1); PLATELET COUNT 113 K/MM3 (134-434); RBC 3.75 M/mm3 (4.00-5.60); RDW 17.5 % (11.9-15.9); WHITE BLOOD COUNT 3.4 K/mm3 (4.0-10.0)
--- NOTE | 2017-12-27 08:36 | PN ---
Progress Note, Physician - Current Medication List Current Medications: Active Medications Acetaminophen (Tylenol -) 650 mg PO Q6H PRN PRN Reason: FEVER Docusate Sodium (Colace -) 100 mg PO Q12H PRN PRN Reason: CONSTIPATION Sodium Chloride (Normal Saline -) 1,000 mls @ 100 mls/hr IV ASDIR [facility] Last Admin: 12/27/17 07:13 Dose: 100 mls/hr Lactulose (Cephulac (Oral Use)) 20 gm PO Q24H PRN PRN Reason: CONSTIPATION Metoprolol Succinate (Toprol Xl -) 25 mg PO DAILY [facility] Ranitidine HCl (Zantac -) 150 mg PO BID [facility] Last Admin: 12/26/17 21:28 Dose: 150 mg Ursodiol (Actigal -) 300 mg PO BID [facility] Last Admin: 12/26/17 21:29 Dose: 300 mg - Objective Vital Signs: Vital Signs Temperature 96.1 F L 12/27/17 06:00 Pulse Rate 54 L 12/27/17 06:00 Respiratory Rate 16 12/27/17 06:00 Blood Pressure 104/61 12/27/17 06:00 O2 Sat by Pulse Oximetry (%) 100 12/26/17 13:36 Cardiovascular: Yes: S1, S2 Respiratory: Yes: Regular, CTA Bilaterally Gastrointestinal: Yes: Normal Bowel Sounds, Soft, Ascites Labs: CBC, BMP 12/27/17 05:35 12/27/17 05:35 INR, PTT INR 1.24 (0.82-1.09) H 12/27/17 05:35 Problem List - Problems (1) Hypotension Assessment/Plan: improved with hydration monitor Code(s): I95.9 - HYPOTENSION, UNSPECIFIED (2) [place] (acute kidney injury) Assessment/Plan: cr 2.5 -ivf -monitor -renal consult Code(s): N17.9 - ACUTE KIDNEY FAILURE, UNSPECIFIED (3) Ascites Assessment/Plan: s/p removal of 9 l Code(s): R18.8 - OTHER ASCITES (4) Cholangiocarcinoma Assessment/Plan: work up at [facility] Code(s): C22.1 - INTRAHEPATIC BILE DUCT CARCINOMA (5) S/P CABG (coronary artery bypass graft) Code(s): Z95.1 - PRESENCE OF AORTOCORONARY BYPASS GRAFT
[2017-12-27 09:18] LABS: BASO % 0.6 % (0-2.0); EOS % 0.2 % (0-4.5); HEMATOCRIT 37.5 % (35.4-49); HEMOGLOBIN 12.5 GM/dL (11.7-16.9); LYMPH % 14.1 % (8-40); MCH 33.6 pg (25.7-33.7); MCHC 33.3 g/dl (32.0-35.9); MEAN PLT VOLUME 7.7 fl (7.5-11.1); MONO % 9.9 % (3.8-10.2); NEUT % 75.2 % (42.8-82.8); PLATELET COUNT 116 K/MM3 (134-434); RBC 3.71 M/mm3 (4.00-5.60); RDW 17.7 % (11.9-15.9); WHITE BLOOD COUNT 3.3 K/mm3 (4.0-10.0)
[2017-12-27 09:33] LABS: ALBUMIN 2.5 g/dl (3.4-5.0); ALK PHOS 82 U/L (45-117); BILIRUBIN,DIRECT 0.2 mg/dL (0.0-0.2); BILIRUBIN,TOTAL 0.6 mg/dL (0.2-1.0); SGOT/AST 26 U/L (15-37); SGPT/ALT 13 U/L (12-78); TOT PROT 5.1 g/dl (6.4-8.2)
--- NOTE | 2017-12-27 09:53 | CONSULT ---
Consultation: REQUESTING PROVIDER: CONSULT REQUEST: We have been asked to medically evaluate this patient for Acute kidney injury. HISTORY OF PRESENT ILLNESS: 72 yo M with PMHx of HTN, HLD , cholangiocarcinoma and liver failure presented from [facility] for pleurix placement and had large volume paracentesis done 12/26 and subsequent weakness and hypotension. He was then admitted for observation to med/surg. He was found have elevated BUN and Cr. He states that because of the acites he has not been drinking any liquids for a few days. Denies CP,SINCLAIR, SOB,nausea, vomiting, fever or chills. - Past Medical History Cardio/Vascular: Yes: CAD (s/p CABG 2003), HTN, Hyperlipdemia, [place] (2003) Gastrointestinal: Yes: Other (colon polyps removed within past 2 years) Hepatobiliary: Yes: Other (intrahepatic biliary strictures - cholangiocarcinoma vs primary sclerosing cholangitis) - Past Surgical History Past Surgical History: Yes: CABG (x4 10 years ago), Cataract Removal, Hernia Repair (bilateral inguinal herniorraphies) - Alcohol/Substance Use Hx Alcohol Use: Yes (socially 30 yrs ago) - Smoking History Smoking history: Former smoker Have you smoked in the past 12 months: No Aproximately how many cigarettes per day: 20 If you are a former smoker, when did you quit?: 1996 - Social History Usual Living Arrangement: With Spouse ADL: Independent Occupation: retired busdriver History of Recent Travel: Yes (to [facility]) Active Medications Generic Name Dose Route Start Last Admin Trade Name Freq PRN Reason Stop Dose Admin Acetaminophen 650 mg 12/26/17 15:24 Tylenol - PO Q6H PRN FEVER Docusate Sodium 100 mg 12/26/17 15:24 Colace - PO Q12H PRN CONSTIPATION Sodium Chloride 1,000 mls @ 100 mls/hr 12/26/17 17:15 12/27/17 07:13 Normal Saline - IV 100 mls/hr ASDIR HOLLIE Administration Lactulose 20 gm 12/26/17 15:25 Cephulac (Oral Use) PO Q24H PRN CONSTIPATION Metoprolol Succinate 25 mg 12/27/17 10:00 Toprol Xl - PO DAILY HOLLIE Ranitidine HCl 150 mg 12/26/17 22:00 12/26/17 21:28 Zantac - PO 150 mg BID HOLLIE Administration Ursodiol 300 mg 12/26/17 22:00 12/26/17 21:29 Actigal - PO 300 mg BID HOLLIE Administration REVIEW OF SYSTEMS: CONSTITUTIONAL: Absent: fever, chills, diaphoresis, generalized weakness, malaise, loss of appetite, weight change HEENT: Absent: rhinorrhea, nasal congestion, throat pain, throat swelling, difficulty swallowing, mouth swelling, ear pain, eye pain, visual changes CARDIOVASCULAR: Absent: chest pain, syncope, palpitations, irregular heart rate, lightheadedness , peripheral edema RESPIRATORY: Absent: cough, shortness of breath, dyspnea with exertion, orthopnea, wheezing, stridor, hemoptysis GASTROINTESTINAL:+ abdominal pain, abdominal distension, Absent: nausea, vomiting, diarrhea, constipation, melena, hematochezia GENITOURINARY: Absent: dysuria, frequency, urgency, hesitancy, hematuria, flank pain, genital pain MUSCULOSKELETAL: Absent: myalgia, arthralgia, joint swelling, back pain, neck pain SKIN: Absent: rash, itching, pallor HEMATOLOGIC/IMMUNOLOGIC: Absent: easy bleeding, easy bruising, lymphadenopathy, frequent infections ENDOCRINE: Absent: unexplained weight gain, unexplained weight loss, heat intolerance, cold intolerance NEUROLOGIC: Absent: headache, focal weakness or paresthesias, dizziness, unsteady gait, seizure, mental status changes, bladder or bowel incontinence PSYCHIATRIC: Absent: anxiety, depression, suicidal or homicidal ideation, hallucinations. PHYSICAL EXAMINATION Vital Signs - 24 hr 12/26/17 12/26/17 12/26/17 10:35 12:04 12:56 Temperature 97.2 F L Pulse Rate 78 76 Pulse Rate [ 71 Left Upper Arm] Respiratory 16 16 Rate Respiratory 16 Rate [Left Upper Arm] Blood Pressure 100/72 107/74 Blood Pressure 118/80 [Left Upper Arm ] O2 Sat by Pulse 100 100 Oximetry (%) O2 Sat by Pulse 100 Oximetry (%) [ Left Upper Arm] GENERAL: AAOx3 , NAD, cachectic HEAD: NC/AT EYES: PERRLA, EOMI , anicteric sclera EARS, NOSE, THROAT: dry mucous membranes. NECK:supple, no jvd LUNGS: CTAB HEART: Regular rate and rhythm, normal S1 and S2 without murmur, rub or gallop. ABDOMEN: Soft, + fluid wave, moderate distention. MUSCULOSKELETAL: No CVA tenderness. UPPER EXTREMITIES: 2+ pulses, warm, well-perfused. No cyanosis. No clubbing. Cap refill <2 seconds. No peripheral edema. LOWER EXTREMITIES: 2+ pulses, warm, well-perfused. No calf tenderness. 1+ edema. NEUROLOGICAL: Cranial nerves II-XII intact. Normal speech. PSYCHIATRIC: Cooperative. Good eye contact. Appropriate mood and affect. SKIN: Warm, dry, normal turgor, no rashes or lesions noted. Laboratory Results - last 24 hr 12/27/17 12/27/17 12/27/17 05:35 05:35 05:35 WBC 3.4 L RBC 3.75 L Hgb 12.5 Hct 37.6 MCV 100.3 H MCH 33.4 MCHC 33.3 RDW 17.5 H Plt Count 113 L D MPV 7.7 Neutrophils % Lymphocytes % Monocytes % Eosinophils % Basophils % PT with INR 14.00 H INR 1.24 H Sodium 143 Potassium 5.2 H D Chloride 110 H Carbon Dioxide 29 Anion Gap 4 L BUN 47 H D Creatinine 2.5 H D Random Glucose 82 D Calcium 8.5 Magnesium 2.4 Total Bilirubin 0.6 D Direct Bilirubin 0.2 AST 26 D ALT 13 D Alkaline Phosphatase 82 D Total Protein 5.1 L D Albumin 2.5 L D 12/27/17 08:19 WBC 3.3 L RBC 3.71 L Hgb 12.5 Hct 37.5 MCV 101.0 H MCH 33.6 MCHC 33.3 RDW 17.7 H Plt Count 116 L MPV 7.7 Neutrophils % 75.2 Lymphocytes % 14.1 D Monocytes % 9.9 Eosinophils % 0.2 Basophils % 0.6 PT with INR INR Sodium Potassium Chloride Carbon Dioxide Anion Gap BUN Creatinine Random Glucose Calcium Magnesium Total Bilirubin Direct Bilirubin AST ALT Alkaline Phosphatase Total Protein Albumin ASSESSMENT/PLAN: 72 yo M with PMHx of HTN, HLD , cholangiocarcinoma and liver failure admitted for paracentesis and dakota. Dispo: We will continue to follow the patient. Thank you for this consultative opportunity. Problem List - Problems (1) DAKOTA (acute kidney injury) Assessment/Plan: most likely pre-renal * will send for kidney and bladder US * send urine lytes and cr. * continue with IVF and albumin for volume expansion. * avoid nephrotoxic agents * repeat BMP in AM Visit type - Emergency Visit Emergency Visit: Yes ED Registration Date: 12/26/17 Care time: The patient presented to the Emergency Department on the above date and was hospitalized for further evaluation of their emergent condition. - New Patient This patient is new to me today: Yes Date on this admission: 12/27/17 - Critical Care Critical Care patient: No
[2017-12-27] MEDS: metoPROLOL SUCCINATE 25 MG TAB.SR.24H (FP) PO SCH (09:57)
[2017-12-27] MEDS: URSODIOL 300 MG CAPSULE PO SCH ×2 (10:00→21:16)
[2017-12-27] MEDS: RANITIDINE HCL 150 MG TABLET (FP) PO SCH ×2 (10:00→21:16)
--- NOTE | 2017-12-27 10:33 | PN ---
Progress Note, Physician History of Present Illness: S/p large volume paracentesis. Clinically the same. AM labs revealed hypokalemia , elevaetd bun and cr. ?paracentesis-related - Current Medication List Current Medications: Active Medications Acetaminophen (Tylenol -) 650 mg PO Q6H PRN PRN Reason: FEVER Docusate Sodium (Colace -) 100 mg PO Q12H PRN PRN Reason: CONSTIPATION Sodium Chloride (Normal Saline -) 1,000 mls @ 100 mls/hr IV ASDIR [facility] Last Admin: 12/27/17 07:13 Dose: 100 mls/hr Lactulose (Cephulac (Oral Use)) 20 gm PO Q24H PRN PRN Reason: CONSTIPATION Metoprolol Succinate (Toprol Xl -) 25 mg PO DAILY [facility] Last Admin: 12/27/17 09:57 Dose: Not Given Ranitidine HCl (Zantac -) 150 mg PO BID [facility] Last Admin: 12/27/17 10:00 Dose: 150 mg Ursodiol (Actigal -) 300 mg PO BID [facility] Last Admin: 12/27/17 10:00 Dose: 300 mg - Objective Vital Signs: Vital Signs Temperature 96.1 F L 12/27/17 06:00 Pulse Rate 54 L 12/27/17 06:00 Respiratory Rate 16 12/27/17 06:00 Blood Pressure 104/61 12/27/17 06:00 O2 Sat by Pulse Oximetry (%) 100 12/26/17 13:36 Constitutional: Yes: Calm, Cachectic, Pallor, Thin Gastrointestinal: Yes: Soft. No: Melena, Rectal Bleeding, Tenderness, Vomiting Neurological: Yes: Alert Labs: CBC, BMP 12/27/17 08:19 12/27/17 05:35 INR, PTT INR 1.24 (0.82-1.09) H 12/27/17 05:35 Laboratory Last Values WBC 3.3 K/mm3 (4.0-10.0) L 12/27/17 08:19 RBC 3.71 M/mm3 (4.00-5.60) L 12/27/17 08:19 Hgb 12.5 GM/dL (11.7-16.9) 12/27/17 08:19 Hct 37.5 % (35.4-49) 12/27/17 08:19 MCV 101.0 fl (80-96) H 12/27/17 08:19 MCH 33.6 pg (25.7-33.7) 12/27/17 08:19 MCHC 33.3 g/dl (32.0-35.9) 12/27/17 08:19 RDW 17.7 % (11.9-15.9) H 12/27/17 08:19 Plt Count 116 K/MM3 (134-434) L 12/27/17 08:19 MPV 7.7 fl (7.5-11.1) 12/27/17 08:19 Neutrophils % 75.2 % (42.8-82.8) 12/27/17 08:19 Lymphocytes % 14.1 % (8-40) D 12/27/17 08: Monocytes % 9.9 % (3.8-10.2) 12/27/17 08: Eosinophils % 0.2 % (0-4.5) 12/27/17 08: Basophils % 0.6 % (0-2.0) 12/27/17 08:19 PT with INR 14.00 SEC (9.98-11.88) H 12/27/17 05:35 INR 1.24 (0.82-1.09) H 12/27/17 05:35 Sodium 143 mmol/L (136-145) 12/27/17 05:35 Potassium 5.2 mmol/L (3.5-5.1) H D 12/27/17 05:35 Chloride 110 mmol/L (98-107) H 12/27/17 05:35 Carbon Dioxide 29 mmol/L (21-32) 12/27/17 05:35 Anion Gap 4 (8-16) L 12/27/17 05:35 BUN 47 mg/dL (7-18) H D 12/27/17 05:35 Creatinine 2.5 mg/dL (0.7-1.3) H D 12/27/17 05:35 Random Glucose 82 mg/dL (74-106) D 12/27/17 05:35 Calcium 8.5 mg/dL (8.5-10.1) 12/27/17 05:35 Magnesium 2.4 mg/dL (1.8-2.4) 12/27/17 05:35 Total Bilirubin 0.6 mg/dL (0.2-1.0) D 12/27/17 05:35 Direct Bilirubin 0.2 mg/dL (0.0-0.2) 12/27/17 05:35 AST 26 U/L (15-37) D 12/27/17 05:35 ALT 13 U/L (12-78) D 12/27/17 05:35 Alkaline Phosphatase 82 U/L (45-117) D 12/27/17 05:35 Total Protein 5.1 g/dl (6.4-8.2) L D 12/27/17 05:35 Albumin 2.5 g/dl (3.4-5.0) L D 12/27/17 05:35 Problem List - Problems (1) Cholangiocarcinoma Code(s): C22.1 - INTRAHEPATIC BILE DUCT CARCINOMA Assessment/Plan Agree with lactulose titrated to 4 bms per day. If starts to exhibit signs of encephalopathy while on lactulose, add rifaximine 550 bid. Close monitoring for signs of peritonial fluid infection now that there is catheter in place. Prognosis grave. Albumin 25 g IV today. Repeat BUN/cr in am. Kayexalate
[2017-12-27] MEDS ORDERED: SODIUM POLYSTYRENE SULFONATE 15 GM/60 ML BOTTLE PO ONE (11:15)
[2017-12-27 11:37] LABS: ANION GAP 10 (8-16); BLOOD UREA NITROGEN 46 mg/dL (7-18); CHLORIDE 109 mmol/L (98-107); CO2 25 mmol/L (21-32); CREATININE 2.6 mg/dL (0.7-1.3); GLUCOSE,RANDOM 118 mg/dL (74-106); POTASSIUM 5.6 mmol/L (3.5-5.1); SODIUM 144 mmol/L (136-145)
[2017-12-27] MEDS: ALBUMIN HUMAN 25% 12.5 GM/50 ML VIAL IVPB SCH (12:24)
--- NOTE | 2017-12-27 17:06 | PN ---
Teaching Attending Note Name of Resident: Kvng Lemus (Nephrology) ATTENDING PHYSICIAN STATEMENT I saw and evaluated the patient. I reviewed the resident's note and discussed the case with the resident. I agree with the resident's findings and plan as documented. Nephrology Pt is a 72 year old male with pmhx of HTN, chol, cholangiocarcinoma and liver cirrhosis who was admitted for paracentesis. He had bloodwork done which revealed an elevated creatinine and elevated potassium. He denies shortness of breath. He is awake and alert pmhx liver cirrhosis cad htn chol pshx cabg nkda family hx denies Laboratory Tests 12/02/16 12/27/17 12/27/17 04:30 05:35 08:19 Hgb 12.5 Potassium 5.2 H D Creatinine 0.8 2.5 H D 12/27/17 10:15 Hgb Potassium 5.6 H Creatinine 2.6 H Last Vital Signs Temp Pulse Resp BP Pulse Ox 98.4 F 72 20 111/74 100 12/27/17 16:58 12/27/17 16:58 12/27/17 16:58 12/27/17 16:58 12/27/17 09:00 Current Medications Generic Name Dose Route Start Last Admin Trade Name Freq PRN Reason Stop Dose Admin Acetaminophen 650 mg 12/26/17 15:24 Tylenol - PO Q6H PRN FEVER Albumin Human 25 gm 12/27/17 11:30 12/27/17 12:24 Albumin Human 25% IVPB 12/30/17 10:01 25 gm DAILY HOLLIE Administration Docusate Sodium 100 mg 12/26/17 15:24 Colace - PO Q12H PRN CONSTIPATION Sodium Chloride 1,000 mls @ 100 mls/hr 12/26/17 17:15 12/27/17 07:13 Normal Saline - IV 100 mls/hr ASDIR HOLLIE Administration Influenza Virus Vaccine Quadrival 60 mcg 12/27/17 20:00 Flulaval Quad [id number] IM 12/27/17 20:01 .ONCE ONE Lactulose 20 gm 12/26/17 15:25 Cephulac (Oral Use) PO Q24H PRN CONSTIPATION Metoprolol Succinate 25 mg 12/27/17 10:00 12/27/17 09:57 Toprol Xl - PO Not Given DAILY HOLLIE Ranitidine HCl 150 mg 12/26/17 22:00 12/27/17 10:00 Zantac - PO 150 mg BID HOLLIE Administration Ursodiol 300 mg 12/26/17 22:00 12/27/17 10:00 Actigal - PO 300 mg BID HOLLIE Administration cardio s1s2 pul clear GI ascites ext edema neuro awake and alert Impression 1. DAKOTA 2. hyperkalemia 3. liver corrhosis 4. CAD 5. hx HTN 6. HLD Plan - send ua and lytes - likely dakota from pre-renal disease - albumin and fluids challenge - potassium treated medically - discussed with resident - avoid nsaids Dr Lomeli
[2017-12-27] MEDS ORDERED: FLU VACCINE QUAD 60 MCG/0.5 ML (MDV 17-18) IM ONE (20:00)
[2017-12-27] MEDS ORDERED: PNEUMOC 13-VAL CONJ-DIP CRM/PF 0.5 ML DISP.SYRIN IM ONE (20:05)
[2017-12-27 21:09] LABS: URINE APPEARANCE CLEAR; URINE BILIRUBIN NEGATIVE (<2.0 mg/dL); URINE COLOR YELLOW; URINE GLUCOSE (UA) NEGATIVE (NEGATIVE); URINE KETONE NEGATIVE (NEGATIVE); URINE LEUK ESTERASE NEGATIVE (NEGATIVE); URINE NITRITE NEGATIVE (NEGATIVE); URINE PROTEIN NEGATIVE (NEGATIVE); URINE UROBILINOGEN NEGATIVE mg/dL (0.2-1.0)
[2017-12-27 22:30] LABS: BLOOD UREA NITROGEN 45 mg/dl (7-18); GLUCOSE,RANDOM 76 mg/dl (74-106)
[2017-12-27 22:31] LABS: ALK PHOS 86 U/L (32-92); ANION GAP 6 (8-16); BILIRUBIN,TOTAL 0.5 mg/dl (0.2-1.0); CALCIUM 8.6 mg/dl (8.4-10.2); CHLORIDE 111 mmol/L (98-107); CO2 27 mmol/L (22-28); CREATININE 2.4 mg/dl (0.6-1.3); POTASSIUM 5.2 mmol/L (3.5-5.1); SGOT/AST 24 U/L (10-42); SGPT/ALT 17 U/L (10-40); SODIUM 144 mmol/L (136-145); TOT PROT 5.8 g/dl (6.4-8.3)
[2017-12-28] MEDS: SODIUM CHLORIDE 1,000 ML IV SCH (06:25)
--- NOTE | 2017-12-28 09:30 | PN ---
Physical Exam: SUBJECTIVE: Patient seen and examined at bedside. No overnight events. No new complaints. Continues to have some abdominal pain at site of paracentesis. Denies CP,SINCLAIR,SOB, palpitations, nausea, vomiting. OBJECTIVE: Vital Signs Period Temp Pulse Resp BP Sys/Aguirre Pulse Ox Last 24 Hr 97.4 F-98.4 F 70-75 16-20 99-122/64-74 100 GENERAL: AAOx3 , NAD, cachectic HEAD: NC/AT EYES: PERRLA, EOMI , anicteric sclera EARS, NOSE, THROAT: dry mucous membranes. NECK:supple, no jvd LUNGS: CTAB HEART: Regular rate and rhythm, normal S1 and S2 without murmur, rub or gallop. ABDOMEN: Soft, + fluid wave, moderate distention. abdominal bandage appears c/d/ i MUSCULOSKELETAL: No CVA tenderness. LOWER EXTREMITIES: 2+ pulses, warm, well-perfused. No calf tenderness. 1+ edema. Laboratory Results - last 24 hr 12/27/17 12/27/17 12/27/17 05:35 10:15 19:30 Sodium 144 Potassium 5.6 H Chloride 109 H Carbon Dioxide 25 Anion Gap 10 BUN 46 H Creatinine 2.6 H Creat Clearance w eGFR Random Glucose 118 H D Calcium 9.0 Total Bilirubin 0.6 D Direct Bilirubin 0.2 AST 26 D ALT 13 D Alkaline Phosphatase 82 D Total Protein 5.1 L D Albumin 2.5 L D Urine Color Urine Appearance Urine pH Ur Specific [place] Urine Protein Urine Glucose (UA) Urine Ketones Urine Blood Urine Nitrite Urine Bilirubin Urine Urobilinogen Ur Leukocyte Esterase Ur Random Sodium 17 Urine Creatinine 12/27/17 12/27/17 12/27/17 19:30 19:30 19:30 Sodium Potassium Chloride Carbon Dioxide Anion Gap BUN Creatinine Creat Clearance w eGFR Random Glucose Calcium Total Bilirubin Direct Bilirubin AST ALT Alkaline Phosphatase Total Protein Albumin Urine Color Yellow Urine Appearance Clear Urine pH 5.0 Ur Specific [place] 1.017 Urine Protein Negative 29 Urine Glucose (UA) Negative Urine Ketones Negative Urine Blood Negative Urine Nitrite Negative Urine Bilirubin Negative Urine Urobilinogen Negative Ur Leukocyte Esterase Negative Ur Random Sodium Urine Creatinine 126.0 12/27/17 20:30 Sodium 144 Potassium 5.2 H Chloride 111 H Carbon Dioxide 27 Anion Gap 6 L BUN 45 H Creatinine 2.4 H Creat Clearance w eGFR 26.82 Random Glucose 76 Calcium 8.6 Total Bilirubin 0.5 Direct Bilirubin AST 24 ALT 17 Alkaline Phosphatase 86 Total Protein 5.8 L Albumin 3.0 L Urine Color Urine Appearance Urine pH Ur Specific [place] Urine Protein Urine Glucose (UA) Urine Ketones Urine Blood Urine Nitrite Urine Bilirubin Urine Urobilinogen Ur Leukocyte Esterase Ur Random Sodium Urine Creatinine Active Medications Generic Name Dose Route Start Last Admin Trade Name Freq PRN Reason Stop Dose Admin Acetaminophen 650 mg 12/26/17 15:24 Tylenol - PO Q6H PRN FEVER Albumin Human 25 gm 12/27/17 11:30 12/27/17 12:24 Albumin Human 25% IVPB 12/30/17 10:01 25 gm DAILY HOLLIE Administration Docusate Sodium 100 mg 12/26/17 15:24 Colace - PO Q12H PRN CONSTIPATION Sodium Chloride 1,000 mls @ 100 mls/hr 12/26/17 17:15 12/28/17 06:25 Normal Saline - IV 100 mls/hr ASDIR HOLLIE Administration Lactulose 20 gm 12/26/17 15:25 Cephulac (Oral Use) PO Q24H PRN CONSTIPATION Metoprolol Succinate 25 mg 12/27/17 10:00 12/27/17 09:57 Toprol Xl - PO Not Given DAILY HOLLIE Ranitidine HCl 150 mg 12/26/17 22:00 12/27/17 21:16 Zantac - PO 150 mg BID HOLLIE Administration Ursodiol 300 mg 12/26/17 22:00 12/27/17 21:16 Actigal - PO 300 mg BID HOLLIE Administration IMAGING: * [id number] US/KIDNEY / RENAL US [id number] US/PELVIC / BLADDER US Renal ultrasound Urinary bladder ultrasound Clinical information: evaluate for obstruction, hydronephrosis There is no evidence of hydronephrosis involving either kidney. The renal cortices bilaterally appear to demonstrate somewhat increased echogenicity which may be on the basis of medical nephropathy. The kidneys appear unremarkable in position and size each measuring approximately 10 cm in length. No gross renal mass lesion or calculus is verified. Incidental note is made of several subcentimeter left renal cortical cysts. The urinary bladder could not be definitely visualized probably due to lack of intraluminal fluid. A large amount of ascites is seen within the abdomen and pelvis bilaterally. A curved intraperitoneal catheter is seen within the mid pelvis ( which was percutaneously placed on 12/26/2017 ). IMPRESSION: No hydronephrosis is identified. The renal cortices bilaterally appear to demonstrate somewhat increased echogenicity which may be on the basis of medical renal disease. Large amount of ascites. Intraperitoneal catheter in place. The urinary bladder cannot be definitely visualized possibly due to lack of intraluminal fluid. If clinically indicated correlate with CT. Reported By: Marky Villegas MD 1918 ASSESSMENT/PLAN: 72 yo M with PMHx of HTN, HLD , cholangiocarcinoma and liver failure admitted for paracentesis and dakota. Problem List - Problems (1) DAKOTA (acute kidney injury) Assessment/Plan: most likely pre-renal * Kidney function same * kidney and bladder US was negative for obstruction. * FeNA.= 0.23% suggestive of pre-renal * continue with IVF @ rate of 42 ml/hr and albumin for volume expansion. * avoid nephrotoxic agents * repeat BMP in AM Visit type - Emergency Visit Emergency Visit: Yes ED Registration Date: 12/26/17 Care time: The patient presented to the Emergency Department on the above date and was hospitalized for further evaluation of their emergent condition. - New Patient This patient is new to me today: No - Critical Care Critical Care patient: No
[2017-12-28 10:07] LABS: ALBUMIN 2.9 g/dl (3.4-5.0); ANION GAP 7 (8-16); BILIRUBIN,TOTAL 0.7 mg/dL (0.2-1.0); BLOOD UREA NITROGEN 42 mg/dL (7-18); CALCIUM 8.4 mg/dL (8.5-10.1); CHLORIDE 111 mmol/L (98-107); CO2 25 mmol/L (21-32); CREATININE 2.4 mg/dL (0.7-1.3); GLUCOSE,RANDOM 116 mg/dL (74-106); POTASSIUM 4.2 mmol/L (3.5-5.1); SGPT/ALT 19 U/L (12-78); SODIUM 143 mmol/L (136-145)
[2017-12-28 10:09] LABS: ALK PHOS 94 U/L (45-117); SGOT/AST 28 U/L (15-37); TOT PROT 5.8 g/dl (6.4-8.2)
[2017-12-28] MEDS ORDERED: PT OWN MED DRAWER 7, Y5N ONE (10:40)
[2017-12-28] MEDS: URSODIOL 300 MG CAPSULE PO SCH ×2 (10:41→22:54)
[2017-12-28] MEDS: RANITIDINE HCL 150 MG TABLET (FP) PO SCH ×2 (10:41→22:54)
[2017-12-28] MEDS: metoPROLOL SUCCINATE 25 MG TAB.SR.24H (FP) PO SCH (10:41)
--- NOTE | 2017-12-28 10:45 | PN ---
Progress Note, Physician Chief Complaint: Paracentesis History of Present Illness: NAD, in bed family at bedside seen by GI labs unremarkable Abdomen still has ascitis early satiety - Current Medication List Current Medications: Active Medications Acetaminophen (Tylenol -) 650 mg PO Q6H PRN PRN Reason: FEVER Albumin Human (Albumin Human 25%) 25 gm IVPB DAILY [facility] Stop: 12/30/17 10:01 Last Admin: 12/27/17 12:24 Dose: 25 gm Docusate Sodium (Colace -) 100 mg PO Q12H PRN PRN Reason: CONSTIPATION Heparin Sodium (Porcine) (Heparin -) 5,000 unit SQ BID [facility] Sodium Chloride (Normal Saline -) 1,000 mls @ 100 mls/hr IV ASDIR [facility] Last Admin: 12/28/17 06:25 Dose: 100 mls/hr Lactulose (Cephulac (Oral Use)) 20 gm PO Q24H PRN PRN Reason: CONSTIPATION Metoprolol Succinate (Toprol Xl -) 25 mg PO DAILY [facility] Last Admin: 12/27/17 09:57 Dose: Not Given Ranitidine HCl (Zantac -) 150 mg PO BID [facility] Last Admin: 12/27/17 21:16 Dose: 150 mg Ursodiol (Actigal -) 300 mg PO BID [facility] Last Admin: 12/27/17 21:16 Dose: 300 mg - Objective Vital Signs: Vital Signs Temperature 97.5 F L 12/28/17 06:38 Pulse Rate 72 12/28/17 06:38 Respiratory Rate 18 12/28/17 06:38 Blood Pressure 122/64 12/28/17 06:38 O2 Sat by Pulse Oximetry (%) 100 12/27/17 21:00 Constitutional: Yes: No Distress, Calm, Cachectic Cardiovascular: Yes: Regular Rate and Rhythm Respiratory: Yes: Regular Gastrointestinal: Yes: Ascites Musculoskeletal: Yes: Muscle Weakness Edema: No Peripheral Pulses WNL: Yes Neurological: Yes: Alert, Oriented Psychiatric: Yes: Alert, Oriented Labs: CBC, BMP 12/27/17 08:19 12/28/17 09:15 INR, PTT INR 1.24 (0.82-1.09) H 12/27/17 05:35 Problem List - Problems (1) Malnourished Assessment/Plan: -albumin -ensure -RD consult -prosource Code(s): E46 - UNSPECIFIED PROTEIN-CALORIE MALNUTRITION Qualifiers: Malnutrition type: protein-calorie malnutrition Protein-calorie malnutrition severity: severe Qualified Code(s): E43 - Unspecified severe protein-calorie malnutrition (2) DAKOTA (acute kidney injury) Assessment/Plan: -gentle IVF -seen by nephrology Code(s): N17.9 - ACUTE KIDNEY FAILURE, UNSPECIFIED (3) Ascites Assessment/Plan: -has pig tail -drain as per GI Code(s): R18.8 - OTHER ASCITES (4) Cholangiocarcinoma Code(s): C22.1 - INTRAHEPATIC BILE DUCT CARCINOMA Assessment/Plan see problem list DVT prophylaxis Physical therapy Nursing, may assist pt OOB as tolerated
[2017-12-28] MEDS: ALBUMIN HUMAN 25% 12.5 GM/50 ML VIAL IVPB SCH (10:48)
[2017-12-28 10:55] LABS: BASO % 0.8 % (0-2.0); EOS % 0.2 % (0-4.5); HEMATOCRIT 43.1 % (35.4-49); LYMPH % 15.9 % (8-40); MCH 32.9 pg (25.7-33.7); MCHC 32.4 g/dl (32.0-35.9); MEAN CELL VOLUME 101.4 fl (80-96); MONO % 9.1 % (3.8-10.2); PLATELET COUNT 149 K/MM3 (134-434); RBC 4.25 M/mm3 (4.00-5.60); RDW 17.7 % (11.9-15.9); WHITE BLOOD COUNT 4.6 K/mm3 (4.0-10.0)
[2017-12-28] MEDS: HEPARIN NA (PORCINE) 5,000 UNITS/ML 1ML VIAL SQ SCH ×2 (13:21→22:54)
[2017-12-28] MEDS ORDERED: SODIUM CHLORIDE 1,000 ML IV SCH (15:45)
[2017-12-28] MEDS: AMINO ACIDS/PROTEIN HYDROLYS 30 ML LIQUID.PKT PO SCH (17:13)
--- NOTE | 2017-12-28 17:50 | PN ---
Progress Note, Physician History of Present Illness: Clinically the same. Tens ascites. Unable to complete meals due to early satiety. Non-toxic appearance, NAD - Current Medication List Current Medications: Active Medications Acetaminophen (Tylenol -) 650 mg PO Q6H PRN PRN Reason: FEVER Albumin Human (Albumin Human 25%) 25 gm IVPB DAILY [facility] Stop: 12/30/17 10:01 Last Admin: 12/28/17 10:48 Dose: 25 gm Amino Acids (Prosource No Carb Liquid Pkt) 30 ml PO BID@0800,1730 [facility] Last Admin: 12/28/17 17:13 Dose: 30 ml Docusate Sodium (Colace -) 100 mg PO Q12H PRN PRN Reason: CONSTIPATION Heparin Sodium (Porcine) (Heparin -) 5,000 unit SQ BID [facility] Last Admin: 12/28/17 13:21 Dose: 5,000 unit Sodium Chloride (Normal Saline -) 1,000 mls @ 42 mls/hr IV ASDIR [facility] Last Admin: 12/28/17 17:13 Dose: 42 mls/hr Lactulose (Cephulac (Oral Use)) 20 gm PO Q24H PRN PRN Reason: CONSTIPATION Last Admin: 12/28/17 10:41 Dose: 20 gm Metoprolol Succinate (Toprol Xl -) 25 mg PO DAILY [facility] Last Admin: 12/28/17 10:41 Dose: 25 mg Ranitidine HCl (Zantac -) 150 mg PO BID [facility] Last Admin: 12/28/17 10:41 Dose: 150 mg Ursodiol (Actigal -) 300 mg PO BID [facility] Last Admin: 12/28/17 10:41 Dose: 300 mg - Objective Vital Signs: Vital Signs Temperature 97.5 F L 12/28/17 06:38 Pulse Rate 98 H 12/28/17 15:56 Respiratory Rate 20 12/28/17 15:56 Blood Pressure 98/74 12/28/17 15:56 O2 Sat by Pulse Oximetry (%) 100 12/27/17 21:00 Labs: CBC, BMP 12/28/17 09:15 12/28/17 09:15 INR, PTT INR 1.24 (0.82-1.09) H 12/27/17 05:35 Problem List - Problems (1) Cholangiocarcinoma Code(s): C22.1 - INTRAHEPATIC BILE DUCT CARCINOMA Assessment/Plan tens ascites leading to decrease in PO intake Albumin 25 g IV Lactulose Remove 2 L of ascitic fluid. Send for fluid albumin, protein, WBC. Serum CMP ? cirrhotic ?malignant discussed with the patient
[2017-12-28 20:24] LABS: ALBUMIN 3.3 g/dl (3.4-5.0); ALK PHOS 85 U/L (45-117); ANION GAP 8 (8-16); BILIRUBIN,DIRECT 0.3 mg/dL (0.0-0.2); BILIRUBIN,TOTAL 0.7 mg/dL (0.2-1.0); BLOOD UREA NITROGEN 43 mg/dL (7-18); CALCIUM 8.5 mg/dL (8.5-10.1); CHLORIDE 110 mmol/L (98-107); CO2 26 mmol/L (21-32); CREATININE 2.2 mg/dL (0.7-1.3); GLUCOSE,RANDOM 120 mg/dL (74-106); POTASSIUM 4.3 mmol/L (3.5-5.1); SGOT/AST 25 U/L (15-37); SGPT/ALT 17 U/L (12-78); SODIUM 144 mmol/L (136-145); TOT PROT 6.1 g/dl (6.4-8.2)
--- NOTE | 2017-12-28 20:28 | PN ---
Teaching Attending Note Name of Resident: Kvng Lemus (Nephrology) ATTENDING PHYSICIAN STATEMENT I saw and evaluated the patient. I reviewed the resident's note and discussed the case with the resident. I agree with the resident's findings and plan as documented. Renal Pt seen and examined at bedside. He complains of increased ascites. Current Medications Generic Name Dose Route Start Last Admin Trade Name Freq PRN Reason Stop Dose Admin Acetaminophen 650 mg 12/26/17 15:24 Tylenol - PO Q6H PRN FEVER Albumin Human 25 gm 12/27/17 11:30 12/28/17 10:48 Albumin Human 25% IVPB 12/30/17 10:01 25 gm DAILY HOLLIE Administration Amino Acids 30 ml 12/28/17 17:30 12/28/17 17:13 Prosource No Carb Liquid Pkt PO 30 ml BID@0800,1730 HOLLIE Administration Docusate Sodium 100 mg 12/26/17 15:24 Colace - PO Q12H PRN CONSTIPATION Heparin Sodium (Porcine) 5,000 unit 12/28/17 12:00 12/28/17 13:21 Heparin - SQ 5,000 unit BID HOLLIE Administration Sodium Chloride 1,000 mls @ 42 mls/hr 12/28/17 15:45 12/28/17 17:13 Normal Saline - IV 42 mls/hr ASDIR HOLLIE Administration Lactulose 20 gm 12/26/17 15:25 12/28/17 10:41 Cephulac (Oral Use) PO 20 gm Q24H PRN Administration CONSTIPATION Metoprolol Succinate 25 mg 12/27/17 10:00 12/28/17 10:41 Toprol Xl - PO 25 mg DAILY HOLLIE Administration Ranitidine HCl 150 mg 12/26/17 22:00 12/28/17 10:41 Zantac - PO 150 mg BID HOLLIE Administration Ursodiol 300 mg 12/26/17 22:00 12/28/17 10:41 Actigal - PO 300 mg BID HOLLIE Administration Last Vital Signs Temp Pulse Resp BP Pulse Ox 97.5 F L 98 H 20 98/74 100 12/28/17 06:38 12/28/17 15:56 12/28/17 15:56 12/28/17 15:56 12/28/17 09:00 Laboratory Tests 12/28/17 18:45 Potassium 4.3 Creatinine 2.2 H cardio s1s2 pul clear GI ascites ext edema neuro awake and alert Impression 1. DAKOTA 2. hyperkalemia 3. liver corrhosis 4. CAD 5. hx HTN 6. HLD Plan - potassium improved - cont with albumin - decrease fluids - repeat labs in am - likely prerenal however hepatorenal in differential
[2017-12-28 20:44] LABS: PERITONEAL RBC 515 /mm3
[2017-12-28 20:48] LABS: TOTAL PROTEIN,PERITONEAL FLUID 2 gm/dL
[2017-12-28 21:54] LABS: PERITONEAL FLUID EOSINOPHIL 0 %; PERITONEAL FLUID LYMPHOCYTE 33 %; PERITONEAL FLUID MONOCYTE 0 %; PERITONEAL FLUID NEUTROPHIL 9 %
[2017-12-28 21:55] LABS: PERITONEAL FLUID MACROPHAGE 28 %; PERITONEAL FLUID MESOTHELIAL 30 %
[2017-12-29 08:28] LABS: BASO % 0.7 % (0-2.0); EOS % 0.2 % (0-4.5); HEMOGLOBIN 12.5 GM/dL (11.7-16.9); LYMPH % 10.4 % (8-40); MCHC 32.9 g/dl (32.0-35.9); MEAN PLT VOLUME 7.6 fl (7.5-11.1); MONO % 9.3 % (3.8-10.2); NEUT % 79.4 % (42.8-82.8); PLATELET COUNT 120 K/MM3 (134-434); RDW 17.4 % (11.9-15.9); WHITE BLOOD COUNT 4.2 K/mm3 (4.0-10.0)
[2017-12-29 08:59] LABS: CALCIUM 8.3 mg/dL (8.5-10.1); CHLORIDE 113 mmol/L (98-107); POTASSIUM 4.3 mmol/L (3.5-5.1); SODIUM 146 mmol/L (136-145)
[2017-12-29 09:04] LABS: ALBUMIN 2.6 g/dl (3.4-5.0); ALK PHOS 69 U/L (45-117); ANION GAP 9 (8-16); BILIRUBIN,TOTAL 0.8 mg/dL (0.2-1.0); BLOOD UREA NITROGEN 42 mg/dL (7-18); CO2 24 mmol/L (21-32); CREATININE 2.2 mg/dL (0.7-1.3); GLUCOSE,RANDOM 78 mg/dL (74-106); SGOT/AST 25 U/L (15-37); SGPT/ALT 12 U/L (12-78); TOT PROT 5.1 g/dl (6.4-8.2)
--- NOTE | 2017-12-29 09:44 | PN ---
Progress Note, Physician History of Present Illness: 2 L removed last night. Abdomen soft, flat. Able to eat. - Current Medication List Current Medications: Active Medications Acetaminophen (Tylenol -) 650 mg PO Q6H PRN PRN Reason: FEVER Albumin Human (Albumin Human 25%) 25 gm IVPB DAILY [facility] Stop: 12/30/17 10:01 Last Admin: 12/28/17 10:48 Dose: 25 gm Amino Acids (Prosource No Carb Liquid Pkt) 30 ml PO BID@0800,1730 [facility] Last Admin: 12/28/17 17:13 Dose: 30 ml Docusate Sodium (Colace -) 100 mg PO Q12H PRN PRN Reason: CONSTIPATION Heparin Sodium (Porcine) (Heparin -) 5,000 unit SQ BID [facility] Last Admin: 12/28/17 22:54 Dose: 5,000 unit Sodium Chloride (Normal Saline -) 1,000 mls @ 42 mls/hr IV ASDIR [facility] Last Admin: 12/28/17 17:13 Dose: 42 mls/hr Lactulose (Cephulac (Oral Use)) 20 gm PO Q24H PRN PRN Reason: CONSTIPATION Last Admin: 12/28/17 10:41 Dose: 20 gm Metoprolol Succinate (Toprol Xl -) 25 mg PO DAILY [facility] Last Admin: 12/28/17 10:41 Dose: 25 mg Ranitidine HCl (Zantac -) 150 mg PO BID [facility] Last Admin: 12/28/17 22:54 Dose: 150 mg Ursodiol (Actigal -) 300 mg PO BID [facility] Last Admin: 12/28/17 22:54 Dose: 300 mg - Objective Vital Signs: Vital Signs Temperature 97.4 F L 12/29/17 06:00 Pulse Rate 76 12/29/17 06:00 Respiratory Rate 18 12/29/17 06:00 Blood Pressure 91/64 12/29/17 06:00 O2 Sat by Pulse Oximetry (%) 100 12/28/17 21:00 Constitutional: Yes: No Distress, Calm, Cachectic, Pallor, Thin Cardiovascular: No: Bradycardia, Tachycardia Gastrointestinal: Yes: Normal Bowel Sounds, Soft. No: Tenderness, Vomiting Neurological: Yes: Alert Labs: CBC, BMP 12/29/17 07:30 12/29/17 07:30 INR, PTT INR 1.24 (0.82-1.09) H 12/27/17 05:35 Laboratory Last Values WBC 4.2 K/mm3 (4.0-10.0) 12/29/17 07:30 RBC 3.80 M/mm3 (4.00-5.60) L 12/29/17 07:30 Hgb 12.5 GM/dL (11.7-16.9) D 12/29/17 07:30 Hct 38.0 % (35.4-49) 12/29/17 07:30 MCV 100.0 fl (80-96) H 12/29/17 07:30 MCH 33.0 pg (25.7-33.7) 12/29/17 07:30 MCHC 32.9 g/dl (32.0-35.9) 12/29/17 07:30 RDW 17.4 % (11.9-15.9) H 12/29/17 07:30 Plt Count 120 K/MM3 (134-434) L 12/29/17 07:30 MPV 7.6 fl (7.5-11.1) 12/29/17 07:30 Neutrophils % 79.4 % (42.8-82.8) 12/29/17 07:30 Lymphocytes % 10.4 % (8-40) D 12/29/17 07:30 Monocytes % 9.3 % (3.8-10.2) 12/29/17 07:30 Eosinophils % 0.2 % (0-4.5) 12/29/17 07:30 Basophils % 0.7 % (0-2.0) 12/29/17 07:30 PT with INR 14.00 SEC (9.98-11.88) H 12/27/17 05:35 INR 1.24 (0.82-1.09) H 12/27/17 05:35 Sodium 146 mmol/L (136-145) H 12/29/17 07:30 Potassium 4.3 mmol/L (3.5-5.1) 12/29/17 07:30 Chloride 113 mmol/L (98-107) H 12/29/17 07:30 Carbon Dioxide 24 mmol/L (21-32) 12/29/17 07:30 Anion Gap 9 (8-16) 12/29/17 07:30 BUN 42 mg/dL (7-18) H 12/29/17 07:30 Creatinine 2.2 mg/dL (0.7-1.3) H 12/29/17 07:30 Creat Clearance w eGFR 29.65 (>60) 12/29/17 07:30 Random Glucose 78 mg/dL (74-106) D 12/29/17 07:30 Calcium 8.3 mg/dL (8.5-10.1) L 12/29/17 07:30 Magnesium 2.4 mg/dL (1.8-2.4) 12/27/17 05:35 Total Bilirubin 0.8 mg/dL (0.2-1.0) 12/29/17 07:30 Direct Bilirubin 0.3 mg/dL (0.0-0.2) H D 12/28/17 18:45 AST 25 U/L (15-37) 12/29/17 07:30 ALT 12 U/L (12-78) D 12/29/17 07:30 Alkaline Phosphatase 69 U/L (45-117) 12/29/17 07:30 Total Protein 5.1 g/dl (6.4-8.2) L 12/29/17 07:30 Albumin 2.6 g/dl (3.4-5.0) L D 12/29/17 07:30 Urine Color Yellow 12/27/17 19:30 Urine Appearance Clear 12/27/17 19:30 Urine pH 5.0 (5.0-8.0) 12/27/17 19:30 Ur Specific [place] 1.017 (1.001-1.035) 12/27/17 19:30 Urine Protein 29 mg/dl 12/27/17 19:30 Urine Glucose (UA) Negative (NEGATIVE) 12/27/17 19:30 Urine Ketones Negative (NEGATIVE) 12/27/17 19:30 Urine Blood Negative (NEGATIVE) 12/27/17 19:30 Urine Nitrite Negative (NEGATIVE) 12/27/17 19:30 Urine Bilirubin Negative (<2.0 mg/dL) 12/27/17 19:30 Urine Urobilinogen Negative mg/dL (0.2-1.0) 12/27/17 19:30 Ur Leukocyte Esterase Negative (NEGATIVE) 12/27/17 19:30 Ur Random Sodium 17 MMOL/L 12/27/17 19:30 Urine Creatinine 126.0 mg/dL (20-370) 12/27/17 19:30 Peritoneal WBC 83 /mm3 12/28/17 19:00 Peritoneal RBC 515 /mm3 12/28/17 19:00 Periton Neutrophils 9 % 12/28/17 19:00 Periton Lymphocytes 33 % 12/28/17 19:00 Peritoneal Monocytes 0 % 12/28/17 19:00 Peritoneal Eosinophils 0 % 12/28/17 19:00 Periton Mesothelial 30 % 12/28/17 19:00 Periton Macrophages 28 % 12/28/17 19:00 Peritoneal Tot Protein 2 gm/dL 12/28/17 19:00 Peritoneal Albumin 1 g/dL 12/28/17 19:00 Peritoneal LDH 92 IU/L 12/28/17 19:00 Peritoneal Glucose 108 mg/dL 12/28/17 19:00 Peritoneal Amylase 24 U/L 12/28/17 19:00 Problem List - Problems (1) 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
--- NOTE | 2017-12-29 10:12 | PN ---
Physical Exam: SUBJECTIVE: Patient seen and examined at bedside. No overnight events. No new complaints. He had 2L of fluid removed yesterday. Feels more comfortable. Eager to go back to NH Denies CP,S[place]CLA[place],SOB, nausea or vomiting. OBJECTIVE: Vital Signs Period Temp Pulse Resp BP Sys/Aguirre Pulse Ox Last 24 Hr 97.3 F-97.8 F 76-101 18-20 91-118/64-79 100 GENERAL: AAOx3 , NAD, cachectic HEAD: NC/AT EYES: PERRLA, EOMI , anicteric sclera EARS, NOSE, THROAT: dry mucous membranes. NECK:supple, no jvd LUNGS: CTAB HEART: Regular rate and rhythm, normal S1 and S2 without murmur, rub or gallop. ABDOMEN: Soft, mild distention. abdominal bandage appears c/d/i MUSCULOSKELETAL: No CVA tenderness. LOWER EXTREMITIES: 2+ pulses, warm, well-perfused. No calf tenderness. 1+ edema. Laboratory Results - last 24 hr 12/28/17 12/28/17 12/28/17 09:15 09:15 18:45 WBC 4.6 D RBC 4.25 Hgb 14.0 D Hct 43.1 MCV 101.4 H MCH 32.9 MCHC 32.4 RDW 17.7 H Plt Count 149 D MPV 8.0 Neutrophils % 74.0 Lymphocytes % 15.9 Monocytes % 9.1 Eosinophils % 0.2 Basophils % 0.8 Sodium 143 144 Potassium 4.2 D 4.3 Chloride 111 H 110 H Carbon Dioxide 25 26 Anion Gap 7 L 8 BUN 42 H 43 H Creatinine 2.4 H 2.2 H Creat Clearance w eGFR 26.82 29.65 Random Glucose 116 H 120 H Calcium 8.4 L 8.5 Total Bilirubin 0.7 0.7 Direct Bilirubin 0.3 H D AST 28 25 ALT 19 D 17 Alkaline Phosphatase 94 85 Total Protein 5.8 L 6.1 L Albumin 2.9 L 3.3 L Peritoneal WBC Peritoneal RBC Periton Neutrophils Periton Lymphocytes Peritoneal Monocytes Peritoneal Eosinophils Periton Mesothelial Periton Macrophages Peritoneal Tot Protein Peritoneal Albumin Peritoneal LDH Peritoneal Glucose Peritoneal Amylase 12/28/17 12/28/17 12/28/17 19:00 19:00 19:00 WBC RBC Hgb Hct MCV MCH MCHC RDW Plt Count MPV Neutrophils % Lymphocytes % Monocytes % Eosinophils % Basophils % Sodium Potassium Chloride Carbon Dioxide Anion Gap BUN Creatinine Creat Clearance w eGFR Random Glucose Calcium Total Bilirubin Direct Bilirubin AST ALT Alkaline Phosphatase Total Protein Albumin Peritoneal WBC 83 Peritoneal RBC 515 Periton Neutrophils 9 Periton Lymphocytes 33 Peritoneal Monocytes 0 Peritoneal Eosinophils 0 Periton Mesothelial 30 Periton Macrophages 28 Peritoneal Tot Protein Cancelled 2 Peritoneal Albumin Cancelled 1 Peritoneal LDH 92 Peritoneal Glucose 108 Peritoneal Amylase 24 12/29/17 12/29/17 07:30 07:30 WBC 4.2 RBC 3.80 L Hgb 12.5 D Hct 38.0 MCV 100.0 H MCH 33.0 MCHC 32.9 RDW 17.4 H Plt Count 120 L MPV 7.6 Neutrophils % 79.4 Lymphocytes % 10.4 D Monocytes % 9.3 Eosinophils % 0.2 Basophils % 0.7 Sodium 146 H Potassium 4.3 Chloride 113 H Carbon Dioxide 24 Anion Gap 9 BUN 42 H Creatinine 2.2 H Creat Clearance w eGFR 29.65 Random Glucose 78 D Calcium 8.3 L Total Bilirubin 0.8 Direct Bilirubin AST 25 ALT 12 D Alkaline Phosphatase 69 Total Protein 5.1 L Albumin 2.6 L D Peritoneal WBC Peritoneal RBC Periton Neutrophils Periton Lymphocytes Peritoneal Monocytes Peritoneal Eosinophils Periton Mesothelial Periton Macrophages Peritoneal Tot Protein Peritoneal Albumin Peritoneal LDH Peritoneal Glucose Peritoneal Amylase Active Medications Generic Name Dose Route Start Last Admin Trade Name Freq PRN Reason Stop Dose Admin Acetaminophen 650 mg 12/26/17 15:24 Tylenol - PO Q6H PRN FEVER Albumin Human 25 gm 12/27/17 11:30 12/28/17 10:48 Albumin Human 25% IVPB 12/30/17 10:01 25 gm DAILY [facility] Administration Amino Acids 30 ml 12/28/17 17:30 12/28/17 17:13 Prosource No Carb Liquid Pkt PO 30 ml BID@0800,1730 [facility] Administration Docusate Sodium 100 mg 12/26/17 15:24 Colace - PO Q12H PRN CONSTIPATION Heparin Sodium (Porcine) 5,000 unit 12/28/17 12:00 12/28/17 22:54 Heparin - SQ 5,000 unit BID [facility] Administration Sodium Chloride 1,000 mls @ 42 mls/hr 12/28/17 15:45 12/28/17 17:13 Normal Saline - IV 42 mls/hr ASDIR [facility] Administration Lactulose 20 gm 12/26/17 15:25 12/28/17 10:41 Cephulac (Oral Use) PO 20 gm Q24H PRN Administration CONSTIPATION Metoprolol Succinate 25 mg 12/27/17 10:00 12/28/17 10:41 Toprol Xl - PO 25 mg DAILY [facility] Administration Ranitidine HCl 150 mg 12/26/17 22:00 12/28/17 22:54 Zantac - PO 150 mg BID [facility] Administration Ursodiol 300 mg 12/26/17 22:00 12/28/17 22:54 Actigal - PO 300 mg BID [facility] Administration IMAGING: * [id number] US/KIDNEY / RENAL US [id number] US/PELVIC / BLADDER US Renal ultrasound Urinary bladder ultrasound Clinical information: evaluate for obstruction, hydronephrosis There is no evidence of hydronephrosis involving either kidney. The renal cortices bilaterally appear to demonstrate somewhat increased echogenicity which may be on the basis of medical nephropathy. The kidneys appear unremarkable in position and size each measuring approximately 10 cm in length. No gross renal mass lesion or calculus is verified. Incidental note is made of several subcentimeter left renal cortical cysts. The urinary bladder could not be definitely visualized probably due to lack of intraluminal fluid. A large amount of ascites is seen within the abdomen and pelvis bilaterally. A curved intraperitoneal catheter is seen within the mid pelvis ( which was percutaneously placed on 12/26/2017 ). IMPRESSION: No hydronephrosis is identified. The renal cortices bilaterally appear to demonstrate somewhat increased echogenicity which may be on the basis of medical renal disease. Large amount of ascites. Intraperitoneal catheter in place. The urinary bladder cannot be definitely visualized possibly due to lack of intraluminal fluid. If clinically indicated correlate with CT. Reported By: Marky Villegas MD [id number] ASSESSMENT/PLAN: 72 yo M with PMHx of HTN, HLD , cholangiocarcinoma and liver failure admitted for paracentesis and dakota. Problem List - Problems (1) DAKOTA (acute kidney injury) Assessment/Plan: most likely pre-renal * 2L of abdominal fluid removed yesterday * Kidney function same * kidney and bladder US was negative for obstruction. * FeNA.= 0.23% suggestive of pre-renal * Will stop IVF * Continue albumin for volume expansion. * Lactulose and rifaxim as per GI * avoid nephrotoxic agents * repeat BMP in AM Visit type - Emergency Visit Emergency Visit: Yes ED Registration Date: 12/26/17 Care time: The patient presented to the Emergency Department on the above date and was hospitalized for further evaluation of their emergent condition. - New Patient This patient is new to me today: Yes Date on this admission: 12/29/17 - Critical Care Critical Care patient: No
--- NOTE | 2017-12-29 10:30 | PN ---
Progress Note, Physician Chief Complaint: Paracentesis History of Present Illness: NAD, in bed family at bedside seen by GI labs unremarkable Abdomen still has ascitis- removed 2 L last evening early satiety Gentle IVF IV albumin wants to return to [facility] - Current Medication List Current Medications: Active Medications Acetaminophen (Tylenol -) 650 mg PO Q6H PRN PRN Reason: FEVER Albumin Human (Albumin Human 25%) 25 gm IVPB DAILY [facility] Stop: 12/30/17 10:01 Last Admin: 12/28/17 10:48 Dose: 25 gm Amino Acids (Prosource No Carb Liquid Pkt) 30 ml PO BID@0800,1730 [facility] Last Admin: 12/28/17 17:13 Dose: 30 ml Docusate Sodium (Colace -) 100 mg PO Q12H PRN PRN Reason: CONSTIPATION Heparin Sodium (Porcine) (Heparin -) 5,000 unit SQ BID [facility] Last Admin: 12/28/17 22:54 Dose: 5,000 unit Sodium Chloride (Normal Saline -) 1,000 mls @ 42 mls/hr IV ASDIR [facility] Last Admin: 12/28/17 17:13 Dose: 42 mls/hr Lactulose (Cephulac (Oral Use)) 20 gm PO Q24H PRN PRN Reason: CONSTIPATION Last Admin: 12/28/17 10:41 Dose: 20 gm Metoprolol Succinate (Toprol Xl -) 25 mg PO DAILY [facility] Last Admin: 12/28/17 10:41 Dose: 25 mg Ranitidine HCl (Zantac -) 150 mg PO BID [facility] Last Admin: 12/28/17 22:54 Dose: 150 mg Ursodiol (Actigal -) 300 mg PO BID [facility] Last Admin: 12/28/17 22:54 Dose: 300 mg - Objective Vital Signs: Vital Signs Temperature 97.4 F L 12/29/17 06:00 Pulse Rate 76 12/29/17 06:00 Respiratory Rate 18 12/29/17 06:00 Blood Pressure 91/64 12/29/17 06:00 O2 Sat by Pulse Oximetry (%) 100 12/28/17 21:00 Constitutional: Yes: No Distress, Calm, Cachectic Cardiovascular: Yes: Regular Rate and Rhythm Respiratory: Yes: Regular Gastrointestinal: Yes: Ascites Musculoskeletal: Yes: WNL Extremities: Yes: WNL Wound/Incision: Yes: Clean/Dry Neurological: Yes: Alert, Oriented Psychiatric: Yes: Alert, Oriented Labs: CBC, BMP 12/29/17 07:30 12/29/17 07:30 INR, PTT INR 1.24 (0.82-1.09) H 12/27/17 05:35 Problem List - Problems (1) Malnourished Assessment/Plan: -albumin -ensure -RD consult -prosource Code(s): E46 - UNSPECIFIED PROTEIN-CALORIE MALNUTRITION Qualifiers: Malnutrition type: protein-calorie malnutrition Protein-calorie malnutrition severity: severe Qualified Code(s): E43 - Unspecified severe protein-calorie malnutrition (2) DAKOTA (acute kidney injury) Assessment/Plan: -d/c IVF and albumin once discharged -seen by nephrology Code(s): N17.9 - ACUTE KIDNEY FAILURE, UNSPECIFIED (3) Ascites Assessment/Plan: -has pig tail -drain as per GI Code(s): R18.8 - OTHER ASCITES (4) Cholangiocarcinoma Code(s): C22.1 - INTRAHEPATIC BILE DUCT CARCINOMA Assessment/Plan see problem list DVT prophylaxis Physical therapy DNR/DNI d/c to [facility]: drain from pleurix, small amounts every 3 days. Monitor Cr/electrolytes weekly
[2017-12-29] MEDS ORDERED: PT OWN MED DRAWER 7, Y5N ONE (10:36)
[2017-12-29] MEDS: metoPROLOL SUCCINATE 25 MG TAB.SR.24H (FP) PO SCH (10:37)
[2017-12-29] MEDS: ALBUMIN HUMAN 25% 12.5 GM/50 ML VIAL IVPB SCH (10:37)
[2017-12-29] MEDS: URSODIOL 300 MG CAPSULE PO SCH (10:38)
[2017-12-29] MEDS: RANITIDINE HCL 150 MG TABLET (FP) PO SCH (10:38)
[2017-12-29] MEDS: HEPARIN NA (PORCINE) 5,000 UNITS/ML 1ML VIAL SQ SCH ×2 (10:38→10:43)
[2017-12-29] MEDS: AMINO ACIDS/PROTEIN HYDROLYS 30 ML LIQUID.PKT PO SCH (10:40)
--- NOTE | 2017-12-29 10:46 | DS ---
Physical Examination Vital Signs: Vital Signs Temperature 97.4 F L 12/29/17 06:00 Pulse Rate 76 12/29/17 06:00 Respiratory Rate 18 12/29/17 06:00 Blood Pressure 91/64 12/29/17 06:00 O2 Sat by Pulse Oximetry (%) 100 12/28/17 21:00 Constitutional: Yes: No Distress, Calm, Cachectic Cardiovascular: Yes: Regular Rate and Rhythm Respiratory: Yes: Regular Gastrointestinal: Yes: Normal Bowel Sounds, Soft, Ascites Musculoskeletal: Yes: Muscle Weakness Extremities: Yes: WNL Edema: No Peripheral Pulses WNL: Yes Wound/Incision: Yes: Clean/Dry Neurological: Yes: Alert, Oriented Psychiatric: Yes: Alert, Oriented Labs: CBC, BMP 12/29/17 07:30 12/29/17 07:30 Discharge Summary Reason For Visit: UNSPECIFIED JAUNDICE/OTHER ASCITES Current Active Problems DAKOTA (acute kidney injury) (Acute) Ascites (Acute) Cholangiocarcinoma (Acute) Hypotension (Acute) Malnourished (Acute) Hospital Course: S/P CABG WITH LIVER FAILURE WITH PLEURIX PLACEMENT TODAY WITH INTERVENTIONAL RADIOLOGY. PATIENT HAD 9 LITERS OF ABDOMINAL ASCITES FLUID REMOVED. DEVELOPED WEAKNESS AND HYPOTENSION [facility]EEP [facility] Condition: Guarded - Instructions Diet, Activity, Other Instructions: [facility] -Drain from pleurix, small amounts every 3 days. -Follow up with Nephrology Franco Lomeli MD out patient in 2 weeks -Monitor Cr/electrolytes weekly, if elevating, return back to ER -Monitor Platelets -Low sodium diet Disposition: [facility] - Home Medications Comprehensive Discharge Medication List: Ambulatory Orders Metoprolol Succinate [Toprol XL -] 25 mg PO DAILY 12/02/16 Apixaban [Eliquis] 2.5 mg PO BID 11/07/17 Docusate Sodium [Colace -] 300 mg PO HS 11/07/17 Fentanyl 1 each TD UTDICT 11/07/17 Fluconazole 200 mg PO ASDIR 11/07/17 Lactulose (Oral Use) [Cephulac -] 20 gm PO DAILY 11/07/17 Ranitidine HCl [Zantac] 150 mg PO DAILY 11/07/17 Ursodiol [Actigal -] 300 mg PO Q12H 11/07/17 Amino Acids/Protein Hydrolys [Prosource No Carb Liquid Pkt] 30 ml PO BID@0800, 1730 packet 12/29/17 Docusate Sodium [Colace -] 100 mg PO Q12H PRN capsule 12/29/17 Lactulose (Oral Use) [Cephulac -] 20 gm PO Q24H PRN udc 12/29/17
--- NOTE | 2017-12-29 15:24 | PN ---
Teaching Attending Note Name of Resident: Kvng Lemus (Nephrology) ATTENDING PHYSICIAN STATEMENT I saw and evaluated the patient. I reviewed the resident's note and discussed the case with the resident. I agree with the resident's findings and plan as documented. Renal Pt seen and examined at bedside. He is insisting on going back to rehab today. He denies SOB, fevers or chills. Laboratory Tests 12/29/17 07:30 BUN 42 H Creatinine 2.2 H Last Vital Signs Temp Pulse Resp BP Pulse Ox 98.0 F 77 20 95/63 100 12/29/17 10:00 12/29/17 10:00 12/29/17 10:00 12/29/17 10:00 12/29/17 09:00 Current Medications Generic Name Dose Route Start Last Admin Trade Name Freq PRN Reason Stop Dose Admin Acetaminophen 650 mg 12/26/17 15:24 Tylenol - PO Q6H PRN FEVER Albumin Human 25 gm 12/27/17 11:30 12/29/17 10:37 Albumin Human 25% IVPB 12/30/17 10:01 25 gm DAILY [facility] Administration Amino Acids 30 ml 12/28/17 17:30 12/29/17 10:40 Prosource No Carb Liquid Pkt PO 30 ml BID@0800,1730 [facility] Administration Docusate Sodium 100 mg 12/26/17 15:24 Colace - PO Q12H PRN CONSTIPATION Heparin Sodium (Porcine) 5,000 unit 12/28/17 12:00 12/29/17 10:43 Heparin - SQ Not Given BID [facility]IE Lactulose 20 gm 12/26/17 15:25 12/28/17 10:41 Cephulac (Oral Use) PO 20 gm Q24H PRN Administration CONSTIPATION Metoprolol Succinate 25 mg 12/27/17 10:00 12/29/17 10:37 Toprol Xl - PO Not Given DAILY [facility] Ranitidine HCl 150 mg 12/26/17 22:00 12/29/17 10:38 Zantac - PO 150 mg BID [facility] Administration Ursodiol 300 mg 12/26/17 22:00 12/29/17 10:38 Actigal - PO 300 mg BID [facility] Administration cardio s1s2 pul clear GI ascites ext edema neuro awake and alert Impression 1. D[place] 2. hyperkalemia 3. liver corrhosis 4. CAD 5. hx HTN 6. HLD Plan - renal function slowly improving - avoid high volume paracentesis - will need to monitor renal function closely - send back to hospital if he worsens - discussed with medical team
[2017-12-29 16:02] VITALS: BP 102/65; PULSE 79; TEMP 98.6
== END 2017-12-29 16:25 | DRG 682 ==
LOC: JRADIR 10:00 → JASUSAT 10:00 → J8W 20:16 → JASUSAT 20:17 → J8W 20:17
PROVIDERS: ADMIT Family Medicine; ATTEND Family Medicine
PROC: 0W9G30Z Drainage of Peritoneal Cavity with Drainage Device, Percutaneous Approach (ICD-10-PCS; principal; 2017-12-26)
DX: N17.9 Acute kidney failure, unspecified (principal); E43 Unspecified severe protein-calorie malnutrition; R18.8 Other ascites; C22.1 Intrahepatic bile duct carcinoma; R64 Cachexia; Z68.1 Body mass index [BMI] 19.9 or less, adult; E46 Unspecified protein-calorie malnutrition; I95.81 Postprocedural hypotension; Z95.1 Presence of aortocoronary bypass graft; K72.90 Hepatic failure, unspecified without coma; I25.2 Old myocardial infarction; E78.5 Hyperlipidemia, unspecified; I25.10 Atherosclerotic heart disease of native coronary artery without angina pectoris; Z87.891 Personal history of nicotine dependence; K74.60 Unspecified cirrhosis of liver; Z66 Do not resuscitate
CPT/HCPCS: 36415; 49418; 76775-TC; 76856-TC; 80048; 80053; 80076; 81003; 82042; 82150; 82248; 82570; 82945; 83615; 83735; 84156; 84157; 84300; 85025; 85027; 85610; 87070; 87075; 87102; 87116; 87205; 87206; 87210; 89051; 90670; 90688; G0008; G0009; J1644; J7030; P9047